=== PATIENT | female | born 1950 | race Caucasian/White ===

== ENCOUNTER 2025-04-02 09:13 | Outpatient (AMB) | payer MEDICARE, SELFPAY ==
--- OUTSIDE RECORDS SUMMARY | 2025-04-02 09:36 | XMS_ITS | Clinical Summary ---
Author Organization [facility] Address [address] [place] [address] Care Team Providers Care Bottom Saw Operator Name Role Phone Unavailable Primary Care Provider Unavailabl e Surgical History Surgery Date Site/Laterality Comments BLADDER SUSPENSION 1997 PROCEDURE: HISTORICAL BLADDER SUSPENSION; COMMENT: pubovesical cadaveric sling- Dr. Farfan/Nancy HYSTERECTOMY 1995 PROCEDURE: HISTORICAL HYSTERECTOMY; COMMENT: fibroids TAHBSO, polyps also, took ERT for 5 years post op BREAST LUMPECTOMY 08/15/2007 PROCEDURE: ---- BREAST LUMP BIOPSY ----; COMMENT: Dr. Thrasher-left BLADDER SUSPENSION 12/16/07 PROCEDURE: HISTORICAL BLADDER SUSPENSION; COMMENT: mid-urethral sling- Dr. Parker Keenan OTHER SURGICAL HISTORY 02/12/14 PROCEDURE: [place] NDSC NJX IMPLT MATRL URT&/BLDR NCK; COMMENT: Dr. Prieto - Macroplastique CATARACT EXTRACTION -2014 Left PROCEDURE: HISTORICAL CATARACT REMOVAL Medical History Medical History Date Comments Overactive bladder DX:Overactive bladder History of migraine headaches DX :History of migraine headaches Bilateral hand pain 11/05/2013 DX:Bilateral hand pain; COMMENT: Celebrex Sprain of ligament of lumbosacral joint 0 DX:Sprain of ligament of lumbosacral joint; COMMENT: IMO update Fatigue 09/27/2011 DX:Fatigue; COMM ENT: 09/07- defers sleep study Dermatophytosis of nail 02/20/2006 DX:[place] tophytosis of nail; COMMENT: Dr. Herrera, DPM Family History Medical History Relation Name Comments Arthritis Brother Alcohol/Drug Father Hypertension Father Arthritis Maternal Grandmother Arthritis Mother Hypertension Mother Arthritis Sister Relation Name Status Comments Brother Father Maternal Grandmother Mother Sister Social History Tobacco Use Types Packs/Day Years Used Date Smoking Tobacco: Never Smokeless Tobacco: Never Alcohol Use Standard Drinks/Week Comments No 0 (1 standard drink = 0.6 oz pur e alcohol) Comments Unknown Sex and Gender Information Value Date Recorded Sex Assigned at Not on file Legal Sex Female 9:56 AM EST Gender Identity Not on file Sexual Orientation Not on file Obstetrics History Plan of Treatment Health Maintenance Due Date Last Done Comments Zoster Vaccines (2 of 3) 05/24/2012 03/29/2012 Cholesterol Screening (Lipid Panel) 07/30/2022 Colorectal Cancer Screening: Colonoscopy 07/30/2022 Falls Risk Assessment 07/30/2022 Hepatitis C Screening 07/30/2022 Social Influencers of Health Screening 07/30/2022 Hypertension/CHF/CAD Annual BMP Blood Test 08/12/2022 COVID-19 Vaccine ( season) 2024 Depression Screening 08/27/2024 Influenza Vaccine (#1) 2025 8, 05/29/2016, 05/12/2015, Additional history exists RSV Immunization Adult Patients (1 - 1-dose 75+ series) 2025 Breast Cancer Screening 06/23/2026 06/23/20, 06/19/2023, 06/15/2022, Additional history exists DTaP,Tdap,and Td Vaccines (3 - Td or Tdap) 09/23/2028 09/23/2018, 05/21/2008 Osteoporosis Screening (Bone Density Screening) 06/15/2037 06/15/2022, 06/09/2020 Pneumococcal Vaccine: 50+ Years Completed 09/19/2016, 08/17/2015 HIB Vaccines Aged Out No longer eligi ble based on patient's age to complete this topic HPV Vaccines Aged Out No longer eligi ble based on patient's age to complete this topic Hepatitis A Vaccines Aged Out No long er eligible based on patient's age to complete this topic Hepatitis B Vaccines Aged Out No long er eligible based on patient's age to complete this topic IPV Vaccines Aged Out No longer eligi ble based on patient's age to complete this topic MMR Vaccines Aged Out No longer eligi ble based on patient's age to complete this topic Meningococcal ACWY Vaccine Aged Out N o longer eligible based on patient's age to complete this topic Meningococcal B Vaccine Aged Out No l onger eligible based on patient's age to complete this topic RSV Immunization Patients Under 20 months Aged Out No longer eligible based on patient's age to complete this topic Varicella Vaccines Aged Out No longer eligible based on patient's age to complete this topic Procedures Procedure Name Priority Date/Time Associated Diagnosis Comments [facility] SCREENING DIGITAL Routine 06/23/2024 12:47 PM EDT Encounter for screening mammogram for malignant neoplasm of breast [facility] DEXA AXIAL SKELETON Routine 06/15/2022 9:59 AM EDT Encounter for screening for osteoporosis from Last 3 Months or Most Recently Relevant to Health Maintenance Results * [facility] SCREENING DIGITAL (06/23/2024 12:47 PM EDT) Anatomical Region Laterality Modality Mammography 06/23/2024 9:10 AM EDT Narrative 06/23/2024 12:47 PM EDT [facility] Diagnostic Imaging Department [address] [place] [address] Patient: GERI DONIS Fay /Age/Sex: 1950 - 73 - F Unit#: [id number] Location/Status: [facility]REG CLI Mnemonic[facility] Physician: TYE COHEN MD [facility] Screening Digital - 06/23/24 - 0934 Report Status:Signed EXAM: [facility] Screening Digital EXAM DATE AND TIME: 06/23/2024 9:35 AM HISTORY: Screening. Left breast biopsy in 2006, pathology benign. COMPARISON: 06/19/23, 06/15/22, 06/13/21 TECHNIQUE: Bilateral digital breast tomosynthesis was performed in the CC and MLO projections. Computer aided detection with [employer] 3D 3.1 was employed. TISSUE DENSITY: b. There are scattered areas of fibroglandular density. FINDINGS: No suspicious masses, grouped microcalcifications, or areas of architectural distortion are seen. A small round skin lesion is again seen on the inferior left breast. The vascularity is unremarkable. IMPRESSION: Stable mammographic appearance of the breasts. No evidence of malignancy is seen. A negative mammogram in the presence of a clinically suspicious palpable abnormality does not preclude the possibility of malignancy or alter the indications for biopsy. BI-RADS: Category 1: Negative RECOMMENDATION(S): 1: Routine screening mammogram BILATERAL in 1 year. [facility] [address] [place] [address] Dictating Physician: FELICITY SHEPARD MD Electronically Signed by: FELICITY SHEPARD MD Dic Date/Time: 06/23/24 1247 Sign date/Time: 06/23/24 1247 Procedure Note Felicity Shepard MD - 06/28/2024 [facility] Diagnostic Imaging Department [address] [place] [address] Patient: RAYMUNDOGERI R /Age/Sex: 1950 - 73 - F Unit#: [id number] Location/Status: [facility] CLI Mnemonic/Ordering Site: [facility] Ordering Physician: TYE COHEN MD [facility] Screening Digital - 06/23/24 - 0934 Report Status:Signed EXAM: [facility] Screening Digital EXAM DATE AND TIME: 06/23/2024 9:35 AM HISTORY: Screening. Left breast biopsy in 2006, pathology benign. COMPARISON: 06/19/23, 06/15/22, 06/13/21 TECHNIQUE: Bilateral digital breast tomosynthesis was performed in the CCand MLO projections. Computer aided detection with [employer] 3D 3.1was employed. TISSUE DENSITY: b. There are scattered areas of fibroglandular density. FINDINGS: No suspicious masses, grouped microcalcifications, or areas ofarchitectural distortion are seen. A small round skin lesion is again seen on theinferior left breast. The vascularity is unremarkable. IMPRESSION: Stable mammographic appearance of the breasts. No evidence of malignancyis seen. A negative mammogram in the presence of a clinically suspicious palpable abnormality does not preclude the possibility of malignancy or alter the indications for biopsy. BI-RADS: Category 1: Negative RECOMMENDATION(S): 1: Routine screening mammogram BILATERAL in 1 year. Mammogram performed at [facility] [place] [address] Dictating Physician: FELICITY SHEPARD MD Electronically Signed by: FELICITY SHEPARD MD Dic Date/Time: 06/23/24 1247 Sign date/Time: 06/23/241246 Tye Cohen MD IMG BI PROCEDURES Final Result * [facility] DEXA AXIAL SKELETON (06/15/2022 9:59 AM EDT) Anatomical Region Laterality Modality Mammography 06/15/2022 8:58 AM EDT Narrative 06/15/2022 9:59 AM EDT [facility] Diagnostic Imaging Department [address] [place] [address] Patient: GERI DONIS /Age/Sex: 1950 - 71 - F Unit#: [id number] Location/Status: [facility]REG CLI Mnemonic/Ordering Site: [facility] Ordering Physician: RERE SIMMONS MD [facility] Dexa Axial Skeleton - 06/15/22 - HISTORY: The patient is a 71-year-old postmenopausal female with clinical concern for metabolic bone disease. FINDINGS: Dual energy x-ray absorptiometry of the lumbar spine and femurs is performed. The mean bone mineral density at L1-2 is 1.265 gm/cm2 which is 109% of that of young normals and 115% of that of age matched controls. This yields a T-score of 0.8 and a Z-score of 1.4 and there is therefore no evidence of osteoporosis or osteopenia here. The mean bone mineral density of the femurs bilaterally is 0.980 gm/cm2 which is 97% of that of young normals and 107% of that of age matched controls. This yields a T-score of -0.2 and a Z-score of 0.5 and there is therefore no evidence of osteoporosis or osteopenia here. However, the T-score of the right femoral neck is -1.4 and that of the left femoral neck is -1.5 which is diagnostic of osteopenia. IMPRESSION: 1. Osteopenia. There has been an increase of 4.5% in bone mineral density in the lumbar spine since the prior examination of 06/09/2020. There has been a decrease of 7.3% in bone mineral density in the right femur and a decrease of 3.2% in bone mineral density in the left femur. 2. FRAX analysis yields a 10-year probability of major osteoporotic fracture of 9.1% and a 10-year probability of hip fracture of 1.2%. Code 10325 Dictating Physician: MILDRED HASSAN MD Electronically Signed by: MILDRED HASSAN MD Dic Date/Time: 06/15/2258 Sign date/Time: 06/15/2259 Procedure Note Mildred Hassan MD - 2022 [facility] Diagnostic Imaging Department [address] [place] [address] Patient: GERI DONIS Fay Arriola./Age/Sex: 1950 - 71 - F Unit#: [id number] Location/Status: [facility]REG CLI Mnemonic[facility] Ordering Physician: RERE SIMMONS MD [facility] Dexa Axial Skeleton - 06/15/22 - HISTORY: The patient is a 71-year-old postmenopausal female withclinical concern for metabolic bone disease. FINDINGS: Dual energy x-ray absorptiometry of the lumbar spine and femursis performed. The mean bone mineral density at L1-2 is 1.265 gm/cm2 which is109% of that of young normals and 115% of that of age matched controls. Thisyields a T-score of 0.8 and a Z-score of 1.4 and there is therefore no evidenceof osteoporosis or osteopenia here. The mean bone mineral density of the femurs bilaterally is 0.980 gm/gk9hrniq is 97% of that of young normals and 107% of that of age matched controls.This yields a T-score of -0.2 and a Z-score of 0.5 and there is therefore noevidence of osteoporosis or osteopenia here. However, the T-score of the rightfemoral neck is -1.4 and that of the left femoral neck is -1.5 which is diagnosticof osteopenia. IMPRESSION: 1. Osteopenia. There has been an increase of 4.5% in bone mineral densityin the lumbar spine since the prior examination of 06/09/2020. There hasbeen a decrease of 7.3% in bone mineral density in the right femur and a decreaseof 3.2% in bone mineral density in the left femur. 2. FRAX analysis yields a 10-year probability of major osteoporoticfracture of 9.1% and a 10-year probability of hip fracture of 1.2%. Code 69804 Dictating Physician: MILDRED HASSAN MD Electronically Signed by: MILDRED HASSAN MD Dic Date/Time: 06/15/2258 Sign date/Time: 06/15/22958 us Rere Simmons MD IM BI PROCEDURES Final Resu lt from Last 3 Months or Most Recently Relevant to Health Maintenance Advance Directives Documents on File Type Date Recorded Patient Mental Health Professional Expl anation Health Care Decision (hx) 03/13/2022 AD COLES DIRECTIVE Health Care Decision (hx) 03/13/2022 AD COLES DIRECTIVE Health Care Decision (hx) 03/13/2022 AD COLES DIRECTIVE Health Care Decision (hx) 03/13/2022 AD COLES DIRECTIVE Health Care Decision (hx) 03/13/2022 AD COLES DIRECTIVE
--- OUTSIDE RECORDS SUMMARY | 2025-04-02 09:36 | XMS_ITS | Patient Health Record ---
Author Organization [facility] Address [address] [place] [address] Care Team Providers Care Electrical Manufacturing Engineer Name Role Phone Tye Cohen Primary Care Provider Spencer Grubbs Unavailable [phone] Allergies Allergen (clinical drug ingredient) Drug/Non Drug Allergy documented on EMR Reaction Allergy Type Onset Date Status ibuprofen Advil no allergy per pt, due to KD Drug Allergy Active Aleve no allergy per pt, due to KD Drug Allergy Active Motrin no allergy per pt, due to KD Drug Allergy Active Bee Sting Unknown Allergy Active cortisone Cortisone no allergy per pt Drug Allergy Active Reason For Referral No Information Medications Medication SIG (Take, Route, Frequency, Duration) Notes Start Date End Date Status Ciclopirox Olamine 0.77 % 1 application to affected area Externally to feet Twice a day; Duration: 30 days Not-Taking amLODIPine Besylate 5 MG 1 tablet Orally Once a day; Duration: 30 day(s) Active Rizatriptan Benzoate 5 MG 1 tablet Orally Once a day; Duration: 1 day(s) Not-Taking Allergy Eye Drops Ac tive Atorvastatin Calcium Not-Taking Tylenol PRN Active Systane eye drops PRN Active Antibiotic UTI Not-Takin g zzzCompression Stockings 20-30mm Hg . . .; Duration: . A ctive Eliquis Active Cephalexin 500 MG 1 capsule Orally every 12 hours; Duration: 10 day(s) 10 days 2days left 02/16/2022 Not-Taking Aspir-81 Active Sertraline HCl 25 MG Oral; Duration: 90 Not-Taking One-A-Day VitaCraves Adult - as directed Orally PRN Active Metoprolol Tartrate 25 MG as directed extended release once a day Active Immunizations Vaccine Route Administration Date Status Comme nts Influenza Unknown 06/13/2022 Administered COVID-19 Pfizer BioNTech Vaccine Unknown 05/24/2021 Administered 1st 11/03/20 2nd 11/24/20 Social History Tobacco Use: Social History Observation Description Date Details (start date - stop date) Never Smoker NA - NA Tobacco Use/Smoking Question Answer Notes Are you a: nonsmoker Additional Findings: Tobacco Non-User Current no n-smoker Alcohol Screen Question Answer Notes Did you have a drink containing alcohol in the p ast year? No Points 0 Interpretation Negative Tobacco use other than smoking: Question Answer Notes Are you an other tobacco user? No Problems Problem Type SNOMED Code ICD Code Onset Dates Problem Status W/U Status Risk Notes Problem Tinea unguium (174770603) Tinea unguium (B35.1) Active confirmed Problem Hammer toe of left foot (M20.42) Active confirmed Improvemen t, T2 Plan Of Treatment Pending Test Test Name Order Date [id number] NAIL, 6 OR MORE 04/01/2021 60920-APBFXHK NAIL, 6 OR MORE 06/17/2021 07014-MLGTUEK NAIL, 6 OR MORE 09/20/2021 77553-HJOOVJP NAIL, 6 OR MORE 11/25/2021 80592-SGROQFW NAIL, 6 OR MORE 02/10/2022 07324-RVLTAKY NAIL, 6 OR MORE 03/28/2022 25206-XBOGHNU NAIL, 6 OR MORE 06/20/2022 15808-AWPWNVA NAIL, 6 OR MORE 09/05/2022 31534-UAKIFXK NAIL, 6 OR MORE 12/05/2022 55004-TJOVRXZ NAIL, 6 OR MORE 09/18/2023 67742-Ggkfasra Plate 04/01/2021 26514-DYH 06/20/2021 23263-VZZ 02/10/2022 95494-GCS 12/05/2022 81134-IHJ 12/29/2022 68303-HKU 05/30/2022 17629- Debride <25 sq cm 01/12/2023 71061- Debride <25 sq cm 09/05/2022 10500- Debride <25 sq cm 03/28/2022 31677-ZYWSLQM SKIN/TISSUE 06/20/2022 62497-NYRIZWP SKIN/TISSUE 12/22/2022 40275-RAKVFPZ SKIN/TISSUE 02/24/2022 54207-VECYCSD SKIN/TISSUE 07/05/2021 74153-PXFVWWK SKIN/TISSUE 12/29/2022 65901-XIXAJWD SKIN/TISSUE 01/12/2023 70238 - Tenotomy, open flexor 12/04/2023 70692 - Tenotomy, open flexor 12/18/2023 Insurance Providers Payer Name Payer Address Payer Phone Subscriber Number Group Number Insured Name Patient Relationship to Insured Coverage Start Date Coverage End Date [facility] [address] [place] [address] [phone] [id number] Geri Donis Self - patient is the insured Medical (General) History Medical History History ICD Code rheumatoid arthritis Knee Pain Headaches/Migraines High blood pressure Measles Mumps Chicken pox blood clots following Covid vaccine Mild Heart attack Surgical History Surgery Date(Month/Year) Castro Implant 12/12/2016 Castro Implant (unsure what year) 06/15 bladder surgery 09/08/21 [place] knee and Lfoot Cortisone injection Hospitalization History Reason Date(Month/Year) Ultrasound L leg 11/22/21 [facility] Fall on 03/01/22 blood clots mild 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
--- NOTE | 2025-04-02 09:44 | MHC.OFFVIS ---
Intake Visit Reasons: urinary incontinence/nocturia Intake Note: New patient presents today for initial visit for urinary incontinence/nocturia Urology Medication:None Blood Thinner:Apixaban Antibiotic Allergies:None PVR:0ml Allergies bee pollen (bee stings) Allergy (Severe, Verified 04/02/25 09:45) Swelling environmental allergies Allergy (Mild, Verified 04/02/25 09:45) Rash HPI Comments Details: 04/02/25 History of Present Illness - The patient is a 74-year-old female presenting with urinary incontinence. - She has undergone two bladder surgeries, with the second surgery approximately five years ago due to complications with a sling procedure. - Post-surgery, she experienced strings protruding, which were addressed in-office by the surgeon. - She reports nocturnal urinary incontinence, requiring pad changes during the night due to significant leakage. - During the day, she experiences occasional urgency, particularly after consuming large beverages, but generally manages without incidents. - She has not been on any medication for urinary incontinence and has declined Botox treatment due to concerns about its safety. - She has a history of blood clot formation following COVID-19 vaccination, which led to hospitalization and treatment with heparin. - She denies any history of kidney problems, despite previous suggestions by another physician. - She reports the presence of sebaceous cysts in the genital area, which occasionally become noticeable and are self-managed. Results - Urinalysis: No signs of infection observed Plan - Initiate treatment with Trospium for bladder spasms, to be taken on an empty stomach. - Schedule an ultrasound of the kidneys and bladder to assess for any underlying issues. - Plan a follow-up phone call in one month to evaluate the effectiveness of the medication and adjust treatment as necessary. - Discussed the possibility of setting an alarm to wake up every three to four hours to manage nocturnal incontinence. [facility] Medical History (Updated 04/02/25 @ 13:30 by Monalisa Melchor MD) Urinary incontinence Severe obesity (BMI 35.0-39.9) with comorbidity Severe obesity Osteopenia Osteoarthritis of both shoulders Osteoarthritis of knees, bilateral Numerous skin moles Insomnia, unspecified Hypertension Hyperlipemia Generalized osteoarthritis Depression, major, in remission Classical migraine CKD (chronic kidney disease) stage 3, GFR 30-59 ml/min Atrial fibrillation Surgical History H/O: hysterectomy Review of Systems Const All systems reviewed & are unremarkable except as noted in HPI and below Reports no additional complaints Eyes Reports no additional complaints ENT Reports no additional complaints Card Reports no additional complaints Resp Reports no additional complaints GI Reports no additional complaints Reports as per HPI Musc Reports no additional complaints Skin/Breast Reports system reviewed and no additional complaints, except as documented Neuro Reports no additional complaints Psych Reports no additional complaints Endo Reports no additional complaints Seymour/Lymph Reports no additional complaints Aller/Immun Reports no additional complaints Results AMB Urinalysis, Automated UA Leukoctes 0 Usman/uL Last Edit by Radha Lazo on 04/02/25 15:21 UA Nitrite Negative Last Edit by Radha Lazo on 04/02/25 15:21 UA Urobilinogen 3.5 mg/dL Last Edit by Radha Lazo on 04/02/25 15:21 UA Protein 1 mg/dL Last Edit by Radha Lazo on 04/02/25 15:21 UA pH 5.0 Last Edit by Radha Lazo on 04/02/25 15:21 UA Blood 0 Eric/uL Last Edit by Radha Lazo on 04/02/25 15:21 UA Specific Bimble 1.025 Last Edit by Radha Lazo on 04/02/25 15:21 UA Ketone Negative Last Edit by Radha Lazo on 04/02/25 15:21 UA Bilirubin 0 mg/dL Last Edit by Radha Lazo on 04/02/25 15:21 UA Glucose 0 mg/dL Last Edit by Radha Lazo on 04/02/25 15:21 Assessment & Plan Assessment & Plan (1) Nocturia: Code(s): R35.1 - Nocturia Category: Medical (2) Urinary incontinence: Code(s): R32 - Unspecified urinary incontinence Category: Medical Orders: Orders AMB Urinalysis Automated Today R32 - Unspecified urinary incontinence, R35.1 - Nocturia AMB Post Void Residual by ultrasound Today R32 - Unspecified urinary incontinence, R35.1 - Nocturia Medications: New apixaban 5 mg PO BID 60 tabs 0RF docusate sodium 100 mg PO BID 60 tabs 0RF acetaminophen 650 mg (2 x 325 mg) PO Q6H PRN 60 tabs 0RF pain amlodipine 5 mg PO DAILY 60 tabs 0RF metoprolol succinate ER 25 mg PO DAILY 60 tabs 0RF trazodone 100 mg PO BEDTIME 60 tabs 0RF Coding Diagnoses Nocturia R35.1 Urinary incontinence R32
== END 2025-04-02 10:36 | disposition home or self-care (01) ==
LOC: HO.HUSH 09:14
PROVIDERS: PCP Internal Medicine; Visit Provider Urology
DX: R35.1 Nocturia (principal); R32 Unspecified urinary incontinence

== ENCOUNTER → 2025-04-02 09:13 | Outpatient (BNVA) | payer MEDICARE, SELFPAY | PROVIDERS: PCP Internal Medicine; Visit Provider Urology | DX: R35.1 Nocturia (principal); R32 Unspecified urinary incontinence | CPT/HCPCS: 81003; 99202 ==

== ENCOUNTER 2025-04-24 10:41 | Outpatient (AMB) | payer MEDICARE, SELFPAY ==
--- OUTSIDE RECORDS SUMMARY | 2024-02-01 08:15 | XMS_ITS ---
Author Organization [facility] Address [address] [place] [address] Care Team Providers Care Store Mgr Name Role Phone Tye Cohen Primary Care Provider Unavailabl Spencer Nguyễn Unavailable [phone] Encounters Encounter Location Date Provider Diagnosis [address] [address] 02/01/2024 Spencer Ordoñez Plan Of Treatment No Information Progress Notes * Luzma DONISineDOB:[birth year] (74 yo F)Acc No.[id number]:02/01/2024 Progress Notes Patient: Geri RAMSO Provider: Jose Ordoñez DPM :1950 A ge:73 Y S ex:Female Date:02/01/2024 Address:[address] [place], [place] [phone] Pcp:Tye Cohen Subjective: * Chief Complaints: * * Medical History: Objective: * Vitals: Assessment: Plan: * Treatment: * Images: * The named appointment provid er may or may not be the originator of this progress note, and it is not deemed complete until electronically signed by the appointment provider. Sign off status: Pending * Provider: Jose Ordoñez DPM Date: 02/01/2024 Generated for Lucilai ng/Famaryg/eTransmitting on: 0 04/24/2025 11:19 AM EDT
--- NOTE | 2025-04-24 10:42 | MHC.OFFVIS ---
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 She has mixed picture. The patient states that trospium did not help, made symptoms worse. She is interested in the bulkamid procedure. Further evaluation is scheduled for office cystoscopy and pelvic exam at that time. Renal US pending. 04/02/25 History of Present Illness - The patient is a 74-year-old female presenting with urinary incontinence. - She has undergone two bladder surgeries, with the second surgery approximately five years ago due to complications with a sling procedure. - Post-surgery, she experienced strings protruding, which were addressed in-office by the surgeon. - She reports nocturnal urinary incontinence, requiring pad changes during the night due to significant leakage. - During the day, she experiences occasional urgency, particularly after consuming large beverages, but generally manages without incidents. - She has not been on any medication for urinary incontinence and has declined Botox treatment due to concerns about its safety. - She has a history of blood clot formation following COVID-19 vaccination, which led to hospitalization and treatment with heparin. - She denies any history of kidney problems, despite previous suggestions by another physician. - She reports the presence of sebaceous cysts in the genital area, which occasionally become noticeable and are self-managed. Results - Urinalysis: No signs of infection observed Plan - Initiate treatment with Trospium for bladder spasms, to be taken on an empty stomach. - Schedule an ultrasound of the kidneys and bladder to assess for any underlying issues. [facility] Medical History (Updated 04/02/25 @ 13:30 by Monalisa Melchor MD) Urinary incontinence Severe obesity (BMI 35.0-39.9) with comorbidity Severe obesity Osteopenia Osteoarthritis of both shoulders Osteoarthritis of knees, bilateral Numerous skin moles Insomnia, unspecified Hypertension Hyperlipemia Generalized osteoarthritis Depression, major, in remission Classical migraine CKD (chronic kidney disease) stage 3, GFR 30-59 ml/min Atrial fibrillation Surgical History H/O: hysterectomy Review of Systems Const All systems reviewed & are unremarkable except as noted in HPI and below Reports no additional complaints Eyes Reports no additional complaints ENT Reports no additional complaints Card Reports no additional complaints Resp Reports no additional complaints GI Reports no additional complaints Reports as per HPI Musc Reports no additional complaints Skin/Breast Reports system reviewed and no additional complaints, except as documented Neuro Reports no additional complaints Psych Reports no additional complaints Endo Reports no additional complaints Seymour/Lymph Reports no additional complaints Aller/Immun Reports no additional complaints Telehealth Telehealth Telehealth Platform: Telephone Location of provider rendering services: practice address Location of patient: address on file Patient Identification confirmed using: Name, : Yes Telehealth method: voice only Patient verbally consented to treatment: Yes Patient verbally consented to billing insurance company: Yes Patient informed of any privacy concerns related to visit: Yes Minutes spent on Phone/Video with Pt.: 13 Assessment & Plan Assessment & Plan (1) Nocturia: Code(s): R35.1 - Nocturia Category: Medical (2) Urinary incontinence: Code(s): R32 - Unspecified urinary incontinence Category: Medical Plan FU cystoscopy and pelvic exam. Renal US pending. Patient Instructions: The patient had an opportunity to ask questions regarding treatment plan. The patient expressed understanding and agreement with the above treatment plan. The patient is aware they should contact our office by phone for worsening of their current condition or the appearance of new symptoms. Compliance is encouraged with any medications and followup testing that is ordered. It is a privilege to be allowed the opportunity to participate in the urologic care of your patient. If you have any questions or concerns regarding treatment for the above conditions please do not hesitate to contact me. The office telephone contact is [phone]. This note is constructed in part using voice recognition software. While every effort has been made to ensure accuracy supervisor hot dip plating errors may have been included. Yours sincerely, Monalisa Melchor MD Coding Level of Care Code Tele Est Pt Level 3 (83406) Diagnoses Nocturia R35.1 Urinary incontinence R32
--- OUTSIDE RECORDS SUMMARY | 2025-04-24 11:20 | XMS_ITS | Patient Health Record ---
Author Organization [facility] Address [address] [place] [address] Care Team Providers Care [employer] Caretaker Name Role Phone Tye Cohen Primary Care Provider Spencer Grubbs Unavailable [phone] Allergies Allergen (clinical drug ingredient) Drug/Non Drug [...] W/U Status Risk Notes Problem Tinea unguium (840200838) Tinea unguium (B35.1) Active confirmed Problem Hammer toe of left foot (M20.42) Active confirmed Improvemen t, T2 Plan Of Treatment Pending Test Test Name Order Date [id number]-APGSHWK NAIL, 6 OR MORE 04/01/2021 36621-LCUPGMF NAIL, 6 OR MORE 06/17/2021 32714-PWBKYQD NAIL, 6 OR MORE 09/20/2021 94941-TGNPIMD NAIL, 6 OR MORE 11/25/2021 72753-SRRPZRC NAIL, 6 OR MORE 02/10/2022 36833-RYPMTNQ NAIL, 6 OR MORE 03/28/2022 48274-CWOPSES NAIL, 6 OR MORE 06/20/2022 04721-TVBUHHZ NAIL, 6 OR MORE 09/05/2022 94963-YQDMPMB NAIL, 6 OR MORE 12/05/2022 34989-DUXSWUV NAIL, 6 OR MORE 09/18/2023 32346-Ytnalnci Plate 04/01/2021 14970-JFY 06/20/2021 83394-JLL 02/10/2022 60835-OWG 12/05/2022 34928-FIC 12/29/2022 64967-XJO 05/30/2022 92665- Debride <25 sq cm 01/12/2023 50987- Debride <25 sq cm 09/05/2022 51991- Debride <25 sq cm 03/28/2022 33581-KDRVKLS SKIN/TISSUE 06/20/2022 82194-CRNYFTJ SKIN/TISSUE 12/22/2022 91413-UTUJXSB SKIN/TISSUE 02/24/2022 31719-YCOAVYT SKIN/TISSUE 07/05/2021 02769-RROMQVS SKIN/TISSUE 12/29/2022 58996-HHLTAQK SKIN/TISSUE 01/12/2023 16655 - Tenotomy, open flexor 12/04/2023 65772 - Tenotomy, open flexor 12/18/2023 Insurance Providers Payer Name Payer Address Payer Phone Subscriber Number Group Number Insured Name Patient Relationship to Insured Coverage Start Date Coverage End Date [facility] [address] [place] [address] [phone] [id number] Geri Donis Self - patient is [...] History Reason Date(Month/Year) Ultrasound L leg 11/22/21 [facility] Fall on 03/01/22 blood clots mild 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
--- OUTSIDE RECORDS SUMMARY | 2025-04-24 11:20 | XMS_ITS | Clinical Summary ---
Author Organization [employer] [facility] Address [address] [place] [address] Care Team Providers Care Damage Appraiser Name Role Phone Unavailable Primary Care Provider [...] defers sleep study Dermatophytosis of nail 02/20/2006 DX:[place] tophytosis of nail; COMMENT: Dr. Herrera, DPM [...] Procedure Name Priority Date/Time Associated Diagnosis Comments [facility] SCREENING DIGITAL Routine 06/23/2024 12:47 PM EDT Encounter for screening mammogram for malignant neoplasm of breast [facility] DEXA AXIAL SKELETON Routine 06/15/2022 9:59 AM EDT Encounter for screening for osteoporosis from Last 3 Months or Most Recently Relevant to Health Maintenance Results * [facility] SCREENING DIGITAL (06/23/2024 12:47 PM EDT) Anatomical Region Laterality Modality Mammography 06/23/2024 9:10 AM EDT Narrative 06/23/2024 12:47 PM EDT [facility] Diagnostic Imaging Department [address] [place] [address] Patient: GERI DONIS Fay /Age/Sex: 1950 - 73 - F Unit#: [id number] Location/Status: [facility]/REG CLI Mnemonic/Ordering Site[facility] Ordering Physician: TYE COHEN MD [facility] Screening Digital - 06/23/24 - 0934 Report Status:Signed EXAM: [facility] Screening Digital EXAM DATE AND TIME: 06/23/2024 9:35 AM HISTORY: Screening. Left breast biopsy in 2006, pathology benign. COMPARISON: 06/19/23, 06/15/22, 06/13/21 TECHNIQUE: Bilateral digital breast tomosynthesis was performed in the CC and MLO projections. Computer aided detection with [employer] 3D 3.1 was employed. TISSUE DENSITY: b. [...] Mammogram performed at [facility] [address] [place] [address] Dictating Physician: FELICITY SHEPARD MD Electronically Signed by: FELICITY SHEPARD MD Dic Date/Time: 06/23/24 1247 Sign date/Time: 06/23/24 1247 Procedure Note Felicity Shepard MD - 06/28/2024 [facility] Diagnostic Imaging Department [address] [place] [address] Patient: RAYMUNDOGEIR R /Age/Sex: 1950 - 73 - F Unit#: [id number] Location/Status: [facility] CLI Mnemonic/Ordering Site: [facility] Ordering Physician: TYE COHEN MD [facility] Screening Digital - 06/23/24 - 0934 Report Status:Signed EXAM: [facility] Screening Digital EXAM DATE AND TIME: 06/23/2024 9:35 AM HISTORY: Screening. Left breast biopsy in 2006, pathology benign. COMPARISON: 06/19/23, 06/15/22, 06/13/21 TECHNIQUE: Bilateral digital breast tomosynthesis was performed in the CCand MLO projections. Computer aided detection with [employer] 3D 3.1was employed. TISSUE DENSITY: b. There [...] Mammogram performed at [facility] [place] [address] Dictating Physician: FELICITY SHEPARD MD Electronically Signed by: FELICITY SHEPARD MD Dic Date/Time: 06/23/24 1247 Sign date/Time: 06/23/241246 Tye Cohen MD IMG BI PROCEDURES Final Result * [facility] DEXA AXIAL SKELETON (06/15/2022 9:59 AM EDT) Anatomical Region Laterality Modality Mammography 06/15/2022 8:58 AM EDT Narrative 06/15/2022 9:59 AM EDT [facility] Diagnostic Imaging Department [address] [place] [address] Patient: GERI DONIS /Age/Sex: 1950 - 71 - F Unit#: [id number] Location/Status: [facility]REG CLI Mnemonic/Ordering Site: [facility] Ordering [...] probability of hip fracture of 1.2%. Code 92483 Dictating Physician: MILDRED HASSAN MD Electronically Signed by: MILDRED HASSAN MD Dic Date/Time: 06/15/2258 Sign date/Time: 06/15/2259 Procedure Note Mildred Hassan MD - 2022 [facility] Diagnostic Imaging Department [address] [place] [address] Patient: GERI DONIS Fay Arriola./Age/Sex: 1950 - 71 - F Unit#: [id number] Location/Status: [facility]/REG CLI [facility] Ordering Physician: RERE SIMMONS MD [facility] Dexa Axial Skeleton - 06/15/22 [...] density of the femurs bilaterally is 0.980 gm/es8bzull is 97% of that of young normals [...] probability of hip fracture of 1.2%. 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
== END 2025-04-24 16:36 | disposition home or self-care (01) ==
LOC: HO.HUSH 10:41
PROVIDERS: PCP Internal Medicine; Visit Provider Urology
DX: R35.1 Nocturia (principal); R32 Unspecified urinary incontinence
CPT/HCPCS: 99213

== ENCOUNTER 2025-05-19 10:19 | Outpatient (REF) | payer MEDICARE, SELFPAY ==
--- OUTSIDE RECORDS SUMMARY | 2024-02-01 08:15 | XMS_ITS ---
Author Organization [facility] Address [address] [place] [address] Care Team Providers Care Supervisor Nutritional Yeast Name Role Phone Tye Cohen Primary Care Provider Unavailabl Spencer Nguyễn Unavailable [phone] Encounters Encounter Location Date Provider Diagnosis [address] [address] 02/01/2024 Spencer Ordoñez Plan Of Treatment No Information Progress Notes * Luzma DONISineDOB:[birth year] (74 yo F)Acc No.[id number]:02/01/2024 Progress Notes Patient: Geri RAMOS Provider: Jose Ordoñez DPM :1950 A ge:73 Y S ex:Female Date:02/01/2024 Address:[address] [place], [place] [id number] Pcp:Tye Cohen Subjective: * Chief Complaints: * * Medical History: Objective: * Vitals: Assessment: Plan: * Treatment: * Images: * The named appointment provid er may or may not be the originator of this progress note, and it is not deemed complete until electronically signed by the appointment provider. Sign off status: Pending * Provider: Jose Ordoñez DPM Date: 02/01/2024 Generated for Lucilai ng/Faxing/eTransmitting on: 0 05/19/2025 12:32 PM EDT
--- NOTE | ~2025-05-19 | US_ITS ---
CLINICAL HISTORY: R32 - Unspecified urinary incontinence US Renal Comparison: None provided Findings: Right kidney normal size and mildly increased in echotexture, 11.1 cm length. Left kidney normal size and mildly increased in echotexture, 10.3 cm length. No collecting system dilatation of either kidney. Normal color Doppler. IMPRESSION: Mildly increased renal cortical echotexture as can be seen with mild medical renal disease. Clinical correlation. No hydronephrosis. This document has been electronically signed by: Felice Matamoros MD on 05/20/2025 08:56:17
--- OUTSIDE RECORDS SUMMARY | 2025-05-19 12:32 | XMS_ITS | Patient Health Record ---
Author [facility] Address [address] [place] [address] Care Team Providers Care Stitching Machine Feeder Or Offbearer Name Role Phone Tye Cohen Primary Care Provider Spencer Grubbs Unavailable [phone] Allergies Allergen (clinical drug ingredient) Drug/Non Drug [...] W/U Status Risk Notes Problem Tinea unguium (042508472) Tinea unguium (B35.1) Active confirmed Problem Acquired hammer toe of left foot (402356221914 9103) Hammer toe of left foot (M20.42) Active confirmed Improvemen t, T2 Plan Of Treatment Pending Test Test Name Order Date [id number]-LNZQURQ NAIL, 6 OR MORE 04/01/2021 69515-IEBIFNY NAIL, 6 OR MORE 06/17/2021 80565-PNLUZQQ NAIL, 6 OR MORE 09/20/2021 85785-LRFHWAS NAIL, 6 OR MORE 11/25/2021 80238-ODFZPMS NAIL, 6 OR MORE 02/10/2022 82332-LZIUTGQ NAIL, 6 OR MORE 03/28/2022 21724-UFHBTRT NAIL, 6 OR MORE 06/20/2022 47438-RWYWINC NAIL, 6 OR MORE 09/05/2022 82206-FCSIGNV NAIL, 6 OR MORE 12/05/2022 20777-BAUYXRO NAIL, 6 OR MORE 09/18/2023 49757-Jkujdvfz Plate 04/01/2021 46396-OBD 06/20/2021 28295-ERM 02/10/2022 77014-WAK 12/05/2022 57377-EHY 12/29/2022 16368-HVH 05/30/2022 85372- Debride <25 sq cm 01/12/2023 37298- Debride <25 sq cm 09/05/2022 60128- Debride <25 sq cm 03/28/2022 85340-DVLVLDE SKIN/TISSUE 06/20/2022 24926-POATRBH SKIN/TISSUE 12/22/2022 98547-HNGWTEF SKIN/TISSUE 02/24/2022 15299-EIYMGDD SKIN/TISSUE 07/05/2021 05103-OOKTDCN SKIN/TISSUE 12/29/2022 23040-VOKYFLG SKIN/TISSUE 01/12/2023 07668 - Tenotomy, open flexor 12/04/2023 66460 - Tenotomy, open flexor 12/18/2023 Insurance Providers Payer Name Payer Address Payer Phone Subscriber Number Group Number Insured Name Patient Relationship to Insured Coverage Start Date Coverage End Date [facility] [address] [place] [address] [phone] [id number] Jewels Geri Self - patient is the insured Medical [...] History Reason Date(Month/Year) Ultrasound L leg 11/22/21 [facility] Fall on 03/01/22 blood clots mild 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
--- OUTSIDE RECORDS SUMMARY | 2025-05-19 12:32 | XMS_ITS | Clinical Summary ---
Author Organization [facility] Address [address] [place] [address] Care Team Providers Care Real Estate Coordinator Name Role Phone Unavailable Primary Care Provider [...] Parker Keenan OTHER SURGICAL HISTORY 02/12/14 PROCEDURE: [place] NDSC NJX IMPLT MATRL URT&/BLDR NCK; COMMENT: [...] defers sleep study Dermatophytosis of nail 02/20/2006 DX:[place] tophytosis of nail; COMMENT: Dr. Herrera, DPM [...] Due Date Last Done Comments Zoster Vaccines (3 of 3) 08/23/2020 020, 04/14/2020, 03/29/2012, Additional history exists Cholesterol Screening (Lipid Panel) 07/30/2022 Falls Risk Assessment 07/30/2022 Hepatitis C Screening 07/30/2022 Social Influencers of Health Screening 07/30/2022 Hypertension/CHF/CAD Annual BMP Blood Test 08/12/2022 Depression Screening 08/27/2024 COVID-19 Vaccine ( season) 2025 12/08/2021, 05/24/2021, 11/24/2020, Additional history exists Influenza Vaccine (#1) 2025 , 06/15/2022, 06/13/2021, Additional history exists RSV Immunization Adult Patients (1 - 1-dose 75+ series) 2025 Breast Cancer Screening 06/23/2026 06/23/20 24, 06/19/2023, 06/15/2022, Additional history exists Colorectal Cancer Screening: FIT-DNA (Cologuard) 05/08/2027 05/08/2024, 05/08/2024 DTaP,Tdap,and Td Vaccines (5 - Td or Tdap) 09/23/2028 09/23/2018, 08/27/2011, 05/21/2008, Additional history exists Osteoporosis Screening (Bone Density Screening) 06/15/2037 06/15/2022, 06/09/2020 Pneumococcal Vaccine: 50+ Years Completed 12/31/2023, 05/10/2023, 06/09/2019, Additional history exists HIB Vaccines Aged Out No longer eligi [...] Procedure Name Priority Date/Time Associated Diagnosis Comments [facility] SCREENING DIGITAL Routine 06/23/2024 12:47 PM EDT Encounter for screening mammogram for malignant neoplasm of breast [facility] DEXA AXIAL SKELETON Routine 06/15/2022 9:59 AM EDT Encounter for screening for osteoporosis from Last 3 Months or Most Recently Relevant to Health Maintenance Results * [facility] SCREENING DIGITAL (06/23/2024 12:47 PM EDT) Anatomical Region Laterality Modality Mammography 06/23/2024 9:10 AM EDT Narrative 06/23/2024 12:47 PM EDT [facility] Diagnostic Imaging Department [address] [place] [id number] Patient: GERI DONIS Fay Deras/Age/Sex: 1950 - 73 - F Unit#: [id number] Location/Status: SPDIMAM/REG CLI Mnemonic/Ordering Site: DIGSC/SPMAM Ordering Physician: MARY COHEN MD [facility] Screening Digital - 06/23/24 - 933 Report Status:Signed EXAM: [facility] Screening Digital EXAM DATE AND TIME: 06/23/2024 9:35 AM HISTORY: Screening. Left breast biopsy in 2006, pathology benign. COMPARISON: 06/19/23, 06/15/22, 06/13/21 TECHNIQUE: Bilateral digital breast tomosynthesis was performed in the CC and MLO projections. Computer aided detection with Expert360 3D 3.1 was employed. TISSUE DENSITY: b. [...] [facility]amm[facility] performed at [facility] [address] [place] [address] Dictating Physician: FELICITY SHEPARD MD Electronically Signed by: FELICITY SHEPARD MD Dic Date/Time: 06/23/24 1247 Sign date/Time: 06/23/24 1247 Procedure Note Felicity Shepard MD - 06/28/2024 [facility] Diagnostic Imaging Department [address] [place] [address] Patient: GERI DONIS.O.B./Age/Sex: 1950 - 73 - F Unit#: [id number] Location/Status: SPDIMAM/REG CLI Mnemonic/Ordering Site: [facility] Ordering Physician: MARY COHEN MD [facility] Screening Digital - 06/23/24 - 34 Report Status:Signed EXAM: [facility] Screening Digital EXAM DATE AND TIME: 06/23/2024 9:35 AM HISTORY: Screening. Left breast biopsy in 2006, pathology benign. COMPARISON: 06/19/23, 06/15/22, 06/13/21 TECHNIQUE: Bilateral digital breast tomosynthesis was performed in the CCand MLO projections. Computer aided detection with Expert360 3D 3.1was employed. TISSUE DENSITY: b. There [...] Mammogram performed at [place] [address] Dictating Physician: FELICITY SHEPARD MD Electronically Signed by: FELICITY SHEPARD MD Dic Date/Time: 06/23/241246 Sign date/Time: 06/23/241246 Mary Cohen MD IMG BI PROCEDURES Final Result * [facility] DEXA AXIAL SKELETON (06/15/2022 9:59 AM EDT) Anatomical Region Laterality Modality Mammography 06/15/2022 8:58 AM EDT Narrative 06/15/2022 9:59 AM EDT [facility] Diagnostic Imaging Department [address] [place] [id number] Patient: GERI DONIS Fay /Age/Sex: 1950 - 71 - F Unit#: [id number] Location/Status: SPDIMA/REG CLI Mnemonic[facility] Ordering Physician: RERE SIMMONS MD [facility] Dexa [...] probability of hip fracture of 1.2%. Code 68501 Dictating Physician: MILDRED HASSAN MD Electronically Signed by: MILDRED HASSAN MD Dic Date/Time: 06/15/22957 Sign date/Time: 06/15/22958 Procedure Note Mildred Hassan MD - 2022 [facility] Diagnostic Imaging Department [address] [place] [address] Patient: GERI DONIS Fay GuerreroB./Age/Sex: 1950 - 71 - F Unit#: [id number] Location/Status: [facility] Mnemonic[facility] Ordering Physician: RERE SIMMONS MD [facility] Dexa [...] density of the femurs bilaterally is 0.980 gm/ii1whtbo is 97% of that of young normals [...] probability of hip fracture of 1.2%. 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
== END 2025-05-19 10:20 | disposition home or self-care (01) ==
LOC: HO.HMGCX 10:19
PROVIDERS: PCP Internal Medicine; Visit Provider Urology
DX: R32 Unspecified urinary incontinence (principal); R35.1 Nocturia
CPT/HCPCS: 76775

== ENCOUNTER → 2025-05-19 10:37 | Outpatient (BNV) | payer MEDICARE, SELFPAY | PROVIDERS: PCP Internal Medicine; Visit Provider Radiology Vascular & Interventional Radiology | DX: R32 Unspecified urinary incontinence (principal) | CPT/HCPCS: 76775 ==

== ENCOUNTER 2025-05-27 10:42 | Outpatient (REF) | payer MEDICARE, SELFPAY ==
--- OUTSIDE RECORDS SUMMARY | 2024-02-01 08:15 | XMS_ITS ---
Author Organization [facility] Address [address] [place] [address] Care Team Providers Care Gas Booster Engineer Name Role Phone Tye Cohen Primary Care Provider Unavailabl Spencer Nguyễn Unavailable [phone] Encounters Encounter Location Date Provider Diagnosis [address] [address] 02/01/2024 Spencer Ordoñez Plan Of Treatment No Information Progress Notes * Pau DONISOB:[birth year] (74 yo F)Acc No.[id number]:02/01/2024 Progress Notes Patient: Geri RAMOS Provider: Jose Ordoñez DPM :1950 A ge:73 Y S ex:Female Date:02/01/2024 Address:[address] [place], [place] [phone] Pcp:Tye Cohen Subjective: * Chief Complaints: * [...] 02/01/2024 Generated for Lucilai ng/Famaryg/eTransmitting on: 1 12:15 PM EDT
--- NOTE | ~2025-05-27 | US_ITS ---
CLINICAL HISTORY: Nocturia Exam: Bladder ultrasound Comparison: US - US RENAL BI - 05/19/25 10:39 EDT Findings: Unremarkable urinary bladder, no calculus or mass, no apparent bladder wall thickening, prevoid bladder volume 131 mL, postvoid residual volume 54 mL, right ureteral jet is seen, left ureteral jet is not visualized. Impression: Prominent postvoid bladder residual volume, otherwise normal. This document has been electronically signed by: Vicky Enrique MD on 05/27/2025 14:25:08
--- OUTSIDE RECORDS SUMMARY | 2025-05-27 12:16 | XMS_ITS | Data Portability ---
Author Organization [place] - [facility],, RERE SIMMONS MD Address [address] [facility] [address] [place] [address] Care Team Providers Care Fitness Assistant Name Role Phone CLAUDE ZUNIGAYUE Primary Care Provider Assessment No assessment recorded. Plan of Treatment Reminders Order Date Submit Date Provider Last Modified By Organization Details Last Modified Time Details Appointments None recorded. Lab cytology report, thin prep, smear or scraping, cervical or vaginal 2024 025 NORA [facility] (Centralized Electronic Ordering - All Locations), Patient Can Go To The Location Of Their Choice, [id number] 5 09:28:15 culture, urine 2022 023 [facility] (Centralized Electronic Ordering - All Locations), Patient Can Go To The Location Of Their Choice, [id number] 3 09:38:09 pap test, thinprep, cervical 2022 023 [facility] (Centralized Electronic Ordering - All Locations), Patient Can Go To The Location Of Their Choice, [id number] 3 07:47:51 pap test, thinprep, cervical 2021 022 [email or web address] [facility], Cytopathology Service, [address] [facility], [place], [address], 2 07:43:52 Referral None recorded. Procedures None recorded. Surgeries None recorded. Imaging MAMMO, screening , digital, bilateral - Breast Aspiratio n and/or Biopsy if needed 2024 025 nick [facility]iology, [address] [facility], [address], [place], [address], 5 14:51:11 bone density 2024 025 [facility] Radiology, [address], [address], [place], [address], 5 14:51:11 MAMMO, screening , digital, bilateral - Breast Aspiratio n and/or Biopsy if needed 2022 023 [facility] Radiology, [address], [address], [place], [address], 5 07:18:26 bone density 2022 023 [facility] Radiology, [address], [address], [place], [address], 5 07:32:11 MAMMO, screening , digital, bilateral 2021 022 [facility] (Mammography), [address], [place], [address], 2 14:14:36 bone density 2021 022 [facility] Radiology, [address], [address], [place], [address], 10:08:37 Medication Orders estradiol 0.01% (0.1 mg/gram) vaginal cream 2024 025 [facility]/Pharmacy #[id number], [address] [place], [address], 5 09:42:56 estradiol 0.01% (0.1 mg/gram) vaginal cream 2021 022 [facility]/Pharmacy #[id number], [address] [place], [address], 3 09:55:53 Patient TargetsNo targets recorded. Patient Instructions Encounter Date Encounter Id Patient Instructions Last Modified By Organization Details Last Modified Time 06/14/2020 [id number] osteoporosis education Not available 06/14/2020 09:23:04 calcium requirem ent education Not available 06/14/2020 09:23:04 This visit is a phone telehealth visit. The patient consented to the visit by phone. The patient was at home at the time of the call and the provider and patient were the only people on the line. I was at [address] [facility], [address], [place], [place], at the time of the call. She had a normal bone density in 2016. Her recent bone density showed a significant loss however, from 6 to 9% in all parameters. She does not really eat much dairy, she does take an MVI in the morning, but little else for calcium during the day, other than her 2 glasses of milk. milk. We discussed her new diagnosis of osteopenia. We reviewed the results of her bone density test, with reference to the computer images. We discussed the way that standard deviation is used for diagnosis, and what this means to her as she ages. Adequate calcium intake of 1500 mg daily, weight bearing exercise three times a week, and vitamin D supplementation of at least 400 units daily is suggested. She is advised to avoid tobacco, coffee, and steroids if possible. Benefits of an active lifestyle discussed as well. All questions answered. We discussed the different forms of medical treatment for osteoporosis, in case she might need this in the future. She is going to add in an afternoon Viactiv, and add yogurt at lunch time. She will also add in 2000 units of vitamin d a day. She will repeat the bone density testing in 2 years to assess her progress.She is aware that if her bone density diminished significantly in the intervening 2 years she may need medical therapy at that time. She is encouraged to try this preventive therapy first. Return for routine annual exam as scheduled. Face to face discussion for 30 minutes. Not available 06/14/2020 09:24:05 05/05/2022 [id number] atrophic vaginit is: care instructions Not available 05/05/2022 09:40:54 atrial fibrillation: care instructions Not available 05/05/2022 09:40:54 atrophic vaginit is: care instructions Not available 05/05/2022 09:39:47 learning about healthy weight Not available 05/05/2022 09:39:47 She is here for annual exam, had bladder tuck with Dr. Jania Brown in 09/17, but has not noted any improvement in her incontinence or her nocturia every hour, with incontinence on the way to the bathroom. She is not on vaginal estrogen. 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 No surgery is planned. 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 Her grandson Micah is 10, and lockdown has been difficult, He tore his mother's place apart, he is autistic nad nearly nonverbal. She is using the NyStop powder with good results, does not need a refill at this time. She appears to be doing well. She is advised to get 1500 mg of calcium daily into her diet and supplements combined. We discussed the benefits of adequate vitamin D supplementation to at least 400 units daily, daily aerobic exercise of 30 minutes, and stress reduction. Monthly self breast exam was taught, and stressed, and is advised to call if she discovers any new mass in the breast. We discussed adding in vaginal estrogen to see if this helps her symptoms. She is aware to use a scant amount only, as estrogen can increase blood clot risks, but in small doses this will not elevate her serum estradiol levels. She understands and agrees. Rx 0.25 mg estradiol cream daily. Not available 05/05/2022 09:39:45 06/19/2022 [id number] The patient was agreeable to this plan. She is aware of the limitations caused by the covid restrictions, and this phone call, but was appreciative of the efforts to complete the evaluation. She has a recent bone density that showed worsening osteopenia, she lost 4% to 7% bone density in the two femurs. She does not take a calcium or vitamin d supplement. She tried Viactiv but it made her constipated. Her orange juice does have some calcium added, and we reviewed her diet in great detail to find where she might improve her intakes of calcium. We discussed her diagnosis of osteopenia. We reviewed the results of her bone density test, with reference to the computer images. We discussed the way that standard deviation is used for diagnosis, and what this means to her as she ages. Adequate calcium intake of 1500 mg daily, weight bearing exercise three times a week, and vitamin D supplementation of at least 400 units daily is suggested. She is advised to avoid tobacco, coffee, and steroids if possible. Benefits of an active lifestyle discussed as well. All questions answered. We discussed the different forms of medical treatment for osteoporosis, in case she might need this in the future. She will repeat the bone density testing in 2 years to assess her progress.She is aware that if her bone density diminished significantly in the intervening 2 years she may need medical therapy at that time. She is encouraged to try this preventive therapy first. Return for routine annual exam as scheduled. Face to face discussion for 30 minutes. Not available 06/19/2022 12:43:28 05/08/2023 [id number] urinary tract infection in women information Not available 05/08/2023 10:37:29 atrophic vaginit is: care instructions Not available 05/08/2023 10:37:29 learning about healthy weight Not available 05/08/2023 10:37:29 She is here for annual, is still having significant nocturia and incontinence. she saw a urologist, and also a urogynecologist, who recommended botox, however the patient cannot afford that. She had tried the estradiol vaginal cream but felt it did nothing. She is to have knee surgery soon. she notes dysuria for a few weeks but cannot give us a urine specimen today. note from 2021: She is here for annual exam, had bladder tuck with Dr. Jania Brown in 09/17, but has not noted any improvement in her incontinence or her nocturia every hour, with incontinence on the way to the bathroom. She is not on vaginal estrogen. 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 No surgery is planned. She is given clean catch products and lab slip, to go to lab to drop off urine clean catch for culture. She appears to be doing well. Monthly self breast exam was taught, and stressed, and is advised to call if she discovers any new mass in the breast. Not available 05/08/2023 10:38:31 05/26/2025 [id number] atrophic vaginit is: care instructions Not available 05/26/2025 09:42:51 atrophic vaginit is: care instructions Not available 05/26/2025 09:28:10 learning about healthy weight Not available 05/26/2025 09:28:10 She is here for annual, her urinary stress incontinence is getting worse, she is seeing a urologist who is going to inject a bump to help it but she would also like to revisit the estradiol vaginal therapy we had previously spoken about. Note from 2022: She is here for annual, is still having significant nocturia and incontinence. she saw a urologist, and also a urogynecologist, who recommended botox, however the patient cannot afford that. She had tried the estradiol vaginal cream but felt it did nothing. She is to have knee surgery soon. she notes dysuria for a few weeks but cannot give us a urine specimen today. She appears to be doing well. We discussed estradiol cream versus tabs and she prefers the cream daily, she wants to try that again. Monthly self breast exam was taught, and stressed, and is advised to call if she discovers any new mass in the breast. Not available 05/26/2025 09:45:28 Reason for Referral None Reported. Results Created Date Observation Date Name Description Value Unit Range Abnormal Flag Note LastModifiedBy Organization Detail LastModifiedTime 05/05/20 22 05/05/2022 PAP1C ASE [id number] ThinP rep Pap, Image d: NEGAT EZEQUIEL FOR SQUAM OUS INTRA EPITH ELIAL LESIO N AND MALVIKI LAWLER . Atrop hy. Rosette Cullen , CT( CP) (Case elect joellegwyn varela carla d 05 13 2022) ADEQU ACY: Satis facto ry . SOURC E: ThinP rep Pap HPV IF Ascus : Refle x 16 and 18, Cervi shai, Image d CLINI SHAI INFOR MATIO N: HPV If Diagn osis of ASCUS . Menop ause, [Z12. 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 Satis facto ry for evalu ation . Endoc ervic al/tr ansfo rmati on zone ABSEN T. Clini shai Histo ry: Date of Last Menst rual Perio d: not avail able Menst rual Histo ry: Hyste recto my Post- menop ausal Contr acept ezequiel Histo ry: not avail able Ancil tiesha Testi ng: HPV (ASCU S) Case image d by the ThinP rep Imagi ng Syste m with lian gaines or ashli smith. Perfo rmed at [facility] ate Refer ence Labor atory depar tment of Cytol ogy, [address] [place] Clini shai Histo ry (othe r): z12.4 , lps 05-05 neg Phone #: [phone], On-Ca ll Patho logis t: [id number] Not Available [facility] (Centralized Electronic Ordering - All Locations) Patient Can Go To The Location Of Their Choice, [id number] 05/16/2023 16:51:37 06/09/2006/09/2020 bone densi ty No observ ation record ed. [facility] Imaging Dept [address] [place], [address], 06/14/2020 08:24:36 06/09/2006/09/2020 MAMMO , scree estela, digit al, bilat eral No observ ation record ed. [facility] Dept [address] [place], [address], 06/11/2020 11:47:29 06/15/2006/09/2020 bone densi ty No observ ation record ed. BARCODE [facility] Radiology [address] [facility] [address], [place], [address], 06/15/2020 08:12:33 06/15/2006/15/2022 bone densi ty No observ ation record ed. [email or web address] [facility] Imaging Dept [address] [place], [address], 06/15/2022 13:51:39 06/15/2006/15/2022 MAMMO , scree estela, digit al, bilat eral No observ ation record ed. [facility] Imaging Dept [address] [place], [address], 06/15/2022 14:40:41 06/19/20 22 06/15/2022 bone densi ty No observ ation record ed. [facility] [address] [facility] [address], [place], [address], 06/20/2022 08:04:14 Result Notes None recorded. Problems Name Problem SNOMED Code Status Onset Date Resolution Date Notes Provider Name and Address Organization Details Recorded Time Hypertensi ve disorder [id number] Active Rere Simmons MD [address] [facility], [place], [address], [place] [facility], 08:50:51 Depressive disorder 83796869 Active Rere Simmons MD [address], [place], [address], [place] [facility], 5 08:50:51 Arthritis 0605651 Active Rere Simmons MD [address], [place], [address], [place] [facility], 5 08:50:51 Urinary incontinen ce 550141305 Active She has some urinary incontinen ce, she sees Dr. Prieto, and is tkaing medication for this. 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 Rere Simmons MD [address], [place], [address], [place] [facility], 6 08:27:24 Menopausal syndrome 956770809 Active 2015 Rere Simmons MD [address], [place], [address], [place] [facility], 6 08:26:56 Candidiasi s of skin 56293417 Active 2017 Rere Simmons MD [address], [place], [address], [place] [facility], 8 11:36:20 Osteopenia 117933124 Active 2019 Rere Simmons MD [address], [place], [address], [place] [facility], 0 09:22:34 Atrial fibrillati on 45458308 Active 2021 Heather najera [place] - [facility], 2 08:55:33 Atrophic vaginitis 02527396 Active 2021 Rere Simmons MD [address], [place], [address], [place] [facility], 2 09:40:02 Problem Notes None recorded. Procedures Surgical History Date Name Laterality Status Provider Name and Address Organization Details Recorded Time 06/15/20 24 Most Recent Mammogram completed Savanna Baltazar in [facility], 05/26/2025 09:22:39 09/17/19 22 insertion of single incision mid-urethral mini-sling completed Rere Simmons MD [address], [place], [address], [facility], 05/05/2022 09:38:10 12/06/19 17 Other completed Savanna Baltazar in [facility], 04/25/2017 08:11:16 04/25/20 16 Most Recent Bone Density completed Savanna Baltazar in [facility], 04/23/2017 11:01:40 08/27/18 99 Other completed Savanna Baltazar in [facility], 02/19/2013 11:15:16 08/27/18 97 Hysterectomy completed Rere Simmons MD [address], [place], [address], [facility] - [facility], 02/19/2013 21:15:25 Imaging Results None recorded. Procedure Notes None recorded. Medical Equipment None Reported. Allergies No known drug allergies Medications Name Sig Start Date Stop Date Status Note LastModified by Organization Details LastModified Time celecoxib 200 mg capsule 04/26 completed Not Available Not Available Not Available atorvastati n 80 mg tablet TAKE 1 TABLET BY MOUTH AT BEDTIME. 06/19 completed Not Available Not Available Not Available acetaminoph en 325 mg tablet TAKE 1 TABLET BY MOUTH EVERY 4 HOURS NEEDED FOR FEVER 05/05 completed Not Available Not Available Not Available prednisone 10 mg tablet TAKE 6 TABS DAILY X 3 DAYS, THEN 4 TABS X 3 DAYS, THEN 2 TABS X 3 DAYS 04/30 completed Not Available Not Available Not Available oxybutynin chloride ER 15 mg tablet,exte nded release 24 hr active Not Available Not Available Not Available trazodone 50 mg tablet 06/14 completed Not Available Not Available Not Available cetirizine 10 mg tablet TAKE 1 TABLET BY MOUTH EVERY DAY 04/30 completed Not Available Not Available Not Available tolterodine ER 4 mg capsule,ext ended release 24 hr TAKE 1 CAPSULE BY MOUTH ONCE DAILY 04/30 completed Not Available Not Available Not Available lisinopril 20 mg tablet TAKE 1 TABLET BY MOUTH EVERY DAY 05/08 completed Not Available Not Available Not Available prednisone 20 mg tablet TAKE 1 TABLET BY MOUTH TWICE A DAY FOR 8 DAYS 04/24 completed Not Available Not Available Not Available desmopressi n 0.2 mg tablet TAKE 1 TABLET BY MOUTH EVERYDAY AT BEDTIME 05/08 completed Not Available Not Available Not Available triamcinolo ne acetonide 0.5 % topical ointment APPLY THIN LAYER TO AFFECTED AREA(S) TOPICALLY 2 X DAILY X 7 DAYS. AVOID EYES/FACE /GENITALS 05/08 completed Not Available Not Available Not Available amlodipine 5 mg tablet TAKE 1 TABLET BY MOUTH EVERY DAY active Not Available Not Available No t Available ketorolac 0.5 % eye drops PLEASE SEE ATTACHED FOR DETAILED DIRECTION S 05/08 completed Not Available Not Available Not Available prednisolon e acetate 1 % eye drops,suspe nsion PLACE ONE DROP BOTH EYES TWICE A DAY 04/25 completed Not Available Not Available Not Available trazodone 100 mg tablet TAKE 1 TABLET BY MOUTH EVERYDAY AT BEDTIME active Not Available Not Available No t Available amlodipine 10 mg tablet TAKE 1 TABLET BY MOUTH EVERY DAY active Not Available Not Available No t Available cephalexin 500 mg capsule TAKE 1 CAPSULE BY MOUTH EVERY 12 HOURS FOR 10 DAYS 05/05 completed Not Available Not Available Not Available acyclovir 5 % topical ointment APPLY TOPICALLY EVERY 3 HOURS WHILE AWAKE 05/04 completed Not Available Not Available Not Available chlorpromaz ine 25 mg tablet TAKE 1 TABLET BY MOUTH TWICE A DAY 05/05 completed Not Available Not Available Not Available warfarin 5 mg tablet TAKE 1 TABLET BY MOUTH ONCE DAILY DIRECTED BY [facility] 05/08 completed Not Available Not Available Not Available nystatin-tr iamcinolone 100,000 unit/g-0.1 % topical cream APPLY TO AFFECTED AREA TWICE A DAY IN THE MORNING AND IN THE EVENING 05/08 completed Not Available Not Available Not Available sertraline 25 mg tablet TAKE 1 TABLET BY MOUTH EVERY DAY 05/08 completed Not Available Not Available Not Available zolpidem 5 mg tablet 05/08 completed Not Available Not Available Not Available fluvoxamine 50 mg tablet Take 1 tablet every day by oral route. active Not Available Not Available No t Available metoprolol succinate ER 25 mg tablet,exte nded release 24 hr TAKE 1 TABLET BY MOUTH EVERY DAY active Not Available Not Available No t Available nystatin 100,000 unit/gram topical powder APPLY TO AFFECTED AREA TWICE A DAY 05/04 completed Not Available Not Available Not Available estradiol 0.01% (0.1 mg/gram) vaginal cream Insert 0.5 g every day by vaginal route for 85 days. 2024 active Not Available Not Available Not Avai lable methylpredn isolone 4 mg tablets in a dose pack active Not Available Not Available Not Available hydroxyzine HCl 10 mg tablet TAKE 1 TABLET BY MOUTH 3 TIMES A DAY FOR 10 DAYS 04/24 completed Not Available Not Available Not Available amoxicillin 875 mg-potassiu m clavulanate 125 mg tablet TAKE 1 TABLET BY MOUTH TWICE A DAY FOR 10 DAYS 05/04 completed Not Available Not Available Not Available rizatriptan 5 mg tablet TAKE 1 TABLET BY MOUTH DAILY NEEDED FOR MIGRAINE, MAY REPEAT DOSE EVERY 2 HOURS FOR A MAX OF 3 05/05 completed Not Available Not Available Not Available tobramycin 0.3 %-dexametha sone 0.1 % eye drops,suspe nsion active Not Available Not Available Not Available oxycodone 5 mg tablet TAKE 1 TABLET BY MOUTH EVERY 6 HOURS NEEDED FOR PAIN 05/05 completed Not Available Not Available Not Available desmopressi n 0.1 mg tablet TAKE 1 TABLET BY MOUTH EVERY DAY AT BEDTIME 04/26 completed Not Available Not Available Not Available Adult Low Dose Aspirin 81 mg tablet,monika yed release Take 1 tablet every day by oral route. 05/26 completed Not Available Not Available Not Available ciclopirox 0.77 % topical cream APPLY TOPICALLY TO AFFECTED AREA TO FEET 2X DAILY X30 DAYS 05/08 completed Not Available Not Available Not Available escitalopra m 10 mg tablet TAKE 1 TABLET BY MOUTH EVERY DAY 04/30 completed Not Available Not Available Not Available Restasis 0.05 % eye drops in a dropperette PLACE ONE DROP IN BOTH EYES TWICE A DAY 04/25 completed Not Available Not Available Not Available Premarin 0.625 mg/gram vaginal cream active Not Available Not Available Not Available metoprolol tartrate 25 mg tablet TAKE 1/2 TABLET BY MOUTH TWICE DAILY. 05/08 completed Not Available Not Available Not Available mirtazapine 7.5 mg tablet 05/04 completed Not Available Not Available Not Available nitrofurant oin monohydrate /macrocryst als 100 mg capsule TAKE 1 CAPSULE BY MOUTH TWICE A DAY FOR 7 DAYS 05/08 completed Not Available Not Available Not Available trospium 20 mg tablet TAKE 1 TABLET (20 MG) ORALLY 2 TIMES A DAY FOR 30 DAYS ADMINISTE R ON AN EMPTY STOMACH active Not Available Not Available No t Available fluocinonid e 0.1 % topical cream APPLY TOPICALLY TWICE A DAY FOR 14 DAYS 06/19 completed Not Available Not Available Not Available B Complex 04/30 completed Not Available Not Available Not Available Gavilyte-C 240 gram-22.72 gram-6.72 gram-5.84 gram oral solution 04/26 completed Not Available Not Available Not Available Bioflex 04/26 completed Not Available Not Available Not Available Prevnar 13 (PF) 0.5 mL intramuscul ar syringe TO BE ADMINISTE RED BY PHARMACIS T FOR IMMUNIZAT ION active Not Available Not Available No t Available Multi For Her 05/08 completed Not Available Not Available Not Available Eliquis 5 mg tablet TAKE 1 TABLET BY MOUTH 2 TIMES A DAY. active Not Available Not Available No t Available Afluria 7853-0129(P F) 45 mcg (15 mcg x 3)/0.5 mL intramuscul ar syringe TO BE ADMINISTE RED BY PHARMACIS T FOR IMMUNIZAT ION active Not Available Not Available No t Available Fluzone High-Dose 3647-0882 (PF) 180 mcg/0.5 mL intramuscul ar syringe active Not Available Not Available N ot Available Shingrix (PF) 50 mcg/0.5 mL intramuscul ar suspension, kit active Not Available Not Available Not Available Eliquis DVT-PE Treatment 30-Day Starter 5 mg (74 tablets) in dose pack TAKE 2 TABLETS BY MOUTH TWO TIMES A DAY FOR 7 DAYS, THEN TAKE 1 TABLET BY MOUTH TWO TIMES A DAY INDEFINIT JB 10/24 /2022 completed Not Available Not Available Not Available Fluad 2017-19 65yr up(PF)45 mcg(15 mcgx3)/0.5 mL intramuscul ar syringe TO BE ADMINISTE RED BY PHARMACIS T FOR IMMUNIZAT ION active Not Available Not Available No t Available Fluzone High-Dose Quad (PF) 240 mcg/0.7 mL IM syringe TO BE ADMINISTE RED BY PHARMACIS T FOR IMMUNIZAT ION active Not Available Not Available No t Available Vitals Date Recorded Body weight Body mass index (BMI) Body height Heart rate Systolic And Diastolic Provider Name and Address Organization Details Last Updated DateTime 05/05/2022 487131.2 1 g 36.8 kg/m2 170.18 cm 83 /min 135/78 mm[Hg] Heather Baltazar in [facility], 05/05/2022 08:49:44 Date Recorded Body height Body temperature Body mass index (BMI) Body weight Heart rate Systolic And Diastolic Provider Name and Address Organization Details Last Updated DateTime 3 170.18 cm 97.2 [degF] 35.4 kg/m2 772442. 59 g 82 /min 121/61 mm[Hg] Savanna Baltazar in [facility], 3 09:54:53 Date Recorded Body weight Body mass index (BMI) Body height Body temperature Heart rate Systolic And Diastolic Provider Name and Address Organization Details Last Updated DateTime 5 491720. 39 g 37.1 kg/m2 170.18 cm 97.4 [degF] 79 /min 127/60 mm[Hg] Savanna Baltazar in [facility], 5 09:20:34 Date Recorded Body height Provider Name an d Address Organization Details Last Updated DateTime 06/19/2022 170.18 cm Heather butler in [facility], 06/19/2022 10:20:26 Social History Question Answer Notes LastModified by Organizat ion Details LastModified Time Tobacco Smoking Status Never Smoker Not Available [facility] 06/29/2020 03:19:39 What Is Your Level Of Caffeine Consumption? None [id number] Information not available 06/29/2020 In The 14 Days Before Symptom Onset, Have You Had Close Contact With A Laboratory-confirm ed COVID-19 While That Case Was Ill? No Information n ot available 05/05/2022 In The 14 Days Before Symptom Onset, Have You Had Close Contact With A Person Who Is Under Investigation For COVID-19 While That Person Was Ill? No Information not available 05/05/2022 Have You Been To An Area Known To Be High Risk For COVID-19? No Information not available 05/05/2022 What Type Of Diet Are You Following? REGULAR [id number] Information n ot available 06/29/2020 Which Illicit Or Recreational Drugs Have You Used? No [id number] Information not available 06/29/2020 Do You Reside In Or Have You Traveled To An Area Where Ebola Virus Transmission Is Active? No [id number] Information not available 06/29/2020 Education 2 Year College Information not available 02/19/2013 How Many Days In The Past Year Have You Had A Heavy Drinking Consumption (4+ Female, 5+ Male)? 0 Information no t available 04/24/2016 Are There Any Guns Present In Your Home? No Information not available 05/05/2022 High Number Of Sexual Partners No Information not available 04/24/2016 To Which Gender Do You Self-identify? Female Information n ot available 04/24/2016 Marital Status Informatio n not available 05/04/2020 What Was The Date Of Your Most Recent Tobacco Screening? 05/26/2025 Information not available 05/26/2025 What Is Your Relationship Status? Information not available 05/05/2022 Are You Sexually Active? No [id number] Information not available 06/29/2020 How Much Tobacco Do You Smoke? No [id number] Information not available 06/29/2020 General Stress Level Medium Information not available 05/08/2023 Have You Recently (within The Last 12 Weeks, Or During A Current ) Traveled To Or Lived In A Zika-affected Area? No Information not available 04/24/2016 Sex: Female Functional Status Question Answer Note LastModified by Organizat ion Details LastModified Time Do you use any illicit or recreational drugs? No Information not available 05/05/2022 Do you or have you ever used any other forms of tobacco or nicotine? No Information not available 05/05/2022 What is your level of alcohol consumption? None [id number] Information not available 06/29/2020 Do you or have you ever used smokeless tobacco? Never used smokeless tobacco [id number] Information not available 06/29/2020 Are you currently employed? No Information not available 05/05/2022 What is your occupation? retired Information not available 04/24/2016 Do you or have you ever used e-cigarettes or vape? Never used electronic cigarettes [id number] Information not available 06/29/2020 What is your exercise level? None knee issue Information not available 05/08/2023 Mental Status Question Answer Note LastModified by Organization D etails LastModified Time Do you feel stressed (tense, restless, nervous, or anxious, or unable to sleep at night)? [id number] Information not available 05/26/2025 Family History Relationship Description Onset Age of this Age Resolved Age Notes LastModified by Organization Details LastModified Time Mother Hypertensive disorder previo usly record ed as Hypert ension Not available 03/22/2015 08:49:48 Mother Heart disease aneury sm (previ ously record ed as Heart Proble m) Not available 03/22/2015 08:49:48 Mother Problem arthri tis (previ ously record ed as Other) Not available 03/22/2015 08:49:48 Father Hypertensive disorder previo usly record ed as Hypert ension Not available 03/22/2015 08:49:48 Father Substance abuse previo usly record ed as Alcoho l/Subs tance Abuse Not available 03/22/2015 08:49:48 Brother Malignant neoplasm of lung tmeczywor Not available 2016 08:10:33 Brother Substance abuse tmeczywor Not available 2017 09:52:13 Brother Disorder of thyroid gland cancer and throat cancer . tmeczywor Not available 05/08/2023 09:58:02 Medical History Condition Response Anesthesia complications N High Blood Pressure Y Candidate for MyRisk panel N Autoimmune Condition N Depression Y Lung Disease N Defects or Inherited Disease N History of Ovarian Cancer N BRCA testing in past N Anxiety Disorder Y Arthritis Y Infertility N History of Cancer N Endometriosis N Kidney or Bladder Problems Y Thyroid Problems N GI Problems Y Anemia N History of Breast Cancer N CRISTINA exposure N Osteopenia N Psychiatric Illness N Diabetes N Headaches or Migraines Y Asthma N Hepatitis N Heart Disease N Hypertension Y Osteoporosis N Gynecological History Statement/Question Response If Post Menopausal, Age at Menopause 89 7 Age at Menarche 13 Most Recent Mammogram 06/15/2024 Age at First Child 21 Most Recent Bone Density 04/25/2016 Obstetrics History GPAL:G 3 P 2 0 1 2 Type Value Full Term 2 Spontaneous 1 Living 2 Total 3 Immunizations Vaccine Type Date Status Note Provider Nam e and Address Organization Details Recorded Time Influenza, split virus, quadrivalent, preservative 5 completed JUAN Jennings in [facility], 04/24/2016 08:11:07 Influenza, split virus, quadrivalent, preservative 0 completed JUAN Cooper in [facility], 05/04/2020 09:42:32 zoster recombinant 0 completed JUAN Jennings in [facility], 05/08/2023 09:48:31 Influenza, adjuvanted, trivalent, PF 8 completed JUAN Jennings in [facility], 05/08/2023 09:48:31 zoster recombinant 0 completed JUAN Jennings in [facility], 05/08/2023 09:48:31 Influenza, adjuvanted, quadrivalent, PF 1 completed JUAN Jennings in [facility], 05/08/2023 09:48:31 COVID-19, mRNA, LNP-S, PF, 30 mcg/0.3 mL dose 1 completed [place], [place] [facility], 05/08/2023 09:48:31 COVID-19, mRNA, LNP-S, PF, 30 mcg/0.3 mL dose 1 completed [place] [facility], 05/08/2023 09:48:31 COVID-19, mRNA, LNP-S, PF, 30 mcg/0.3 mL dose 1 completed [place] [facility], 05/08/2023 09:48:31 COVID-19, mRNA, LNP-S, PF, 30 mcg/0.3 mL dose, hans-sucrose 2 completed [place]ec[place] [facility], 05/08/2023 09:48:31 pneumococcal polysaccharide PPV23 5 completed [place] [facility], 05/08/2023 09:48:31 Td(adult) unspecified formulation 5 completed [place] [facility], 05/08/2023 09:48:31 Tdap 2 completed [place] [facility], 05/08/2023 09:48:31 Tdap 8 completed [place] [facility], 05/08/2023 09:48:31 Pneumococcal conjugate PCV 13 7 completed [place] [facility], 05/08/2023 09:48:31 Pneumococcal conjugate PCV 13 9 completed [place] [facility], 05/08/2023 09:48:31 zoster live 2 completed [place] [facility], 05/08/2023 09:48:31 zoster live 2 completed [place] [facility], 05/08/2023 09:48:31 Influenza, high-dose, trivalent, PF 9 completed [place] [facility], 05/08/2023 09:48:31 Influenza, high-dose, trivalent, PF 7 completed [place] [facility], 05/08/2023 09:48:31 Influenza, split virus, trivalent, preservative 2 completed [place]ec[place] [facility], 05/08/2023 09:48:31 Influenza, split virus, trivalent, preservative 4 completed [place]ec[place] [facility], 05/08/2023 09:48:31 Influenza, split virus, trivalent, preservative 1 completed [place]ec[place] [facility], 05/08/2023 09:48:31 Influenza, split virus, trivalent, preservative 5 completed [place]ec[place] [facility], 05/08/2023 09:48:31 Influenza, split virus, trivalent, preservative 3 completed [place] [facility], 05/08/2023 09:48:32 Influenza, split virus, trivalent, preservative 8 completed [place] [facility], 05/08/2023 09:48:32 Influenza, split virus, trivalent, preservative 3 completed [place]ec[place] [facility], 05/08/2023 09:48:32 Influenza, split virus, trivalent, preservative 6 completed [place]ec[place] [facility], 05/08/2023 09:48:32 Influenza, split virus, trivalent, preservative 0 completed [place]ec[place] [facility], 05/08/2023 09:48:32 Influenza, split virus, trivalent, preservative 9 completed [place] Mec[place] [facility], 05/08/2023 09:48:32 Influenza, split virus, trivalent, preservative 2 completed [place] Mec[place] [facility], 05/08/2023 09:48:32 Influenza, split virus, trivalent, preservative 7 completed [place] [facility], 05/08/2023 09:48:32 Influenza, split virus, trivalent, preservative 6 completed [place] [facility], 05/08/2023 09:48:32 Influenza, split virus, trivalent, preservative 5 completed [place] [facility], 05/08/2023 09:48:32 Novel [id number], preservative-free 9 completed [place] [facility], 05/08/2023 09:48:32 Td (adult), 2 Lf tetanus toxoid, preservative free, adsorbed 9 completed [place] M[place] [facility], 05/08/2023 09:48:32 Influenza, adjuvanted, quadrivalent, PF 2 completed [place] [facility], 05/08/2023 09:53:45 Pneumococcal conjugate PCV20, polysaccharide SMF317 conjugate, adjuvant, PF 4 completed Not Available [facility] 05/26/2025 09:17:00 pneumococcal polysaccharide PPV23 3 completed Not Available [facility] 05/26/2025 09:17:00 Influenza, adjuvanted, quadrivalent, PF 3 completed Not Available [facility] 05/26/2025 09:17:00 Influenza, high-dose, trivalent, PF 5 completed Not Available [facility] 05/26/2025 09:17:00 Past Encounters Encounter ID Performer Location Encounter Start Date Encounter Closed Date Diagnosis/Indication Diagnosis SNOMED-CT Code Diagnosis ICD10 Code Diagnosis IMO Codes Diagnosis Note [id number] MD RERE Hong MD [address] [place] [address],[place] [address] 02/19/2013 10:49:45 02/20/2013 11:00:02 [id number] MD RERE Hong MD [address] [place] [address], [place] [address] 03/17/2014 07:45:33 03/17/2014 09:06:51 Specialized medical examination 05943171 Screening for malignant neoplasm of rectum 382135700 Screening mammography [id number] MD RERE Hong MD [address] [place] [address],[place] [address] 03/22/2015 08:32:18 03/22/2015 09:47:11 Specialized medical examination [id number] Screening for malignant neoplasm of rectum 679729684 Screening mammography [id number] MD RERE Hong MD [address] [place] [address],[place] [address] 04/24/2016 08:04:13 04/24/2016 10:10:46 Screening for malignant neoplasm of cervix 637097803 Z12.4 Screening mammography 24 992348 Z12.31 Menopausal syndrome 1237 84190 N95.9 [id number] MD RERE Hong MD [address] [place] [address],[place] [address] [place] [address] 04/25/2017 08:02:16 04/25/2017 10:22:36 Screening for malignant neoplasm of cervix 167271754 Z12.4 Screening mammography 24 115783 Z12.31 Cares for self 694912066 Z76.89 [id number] MD RERE Hong MD [address] [place] [address] 04/26/2018 09:18:18 04/26/2018 14:14:03 Screening for malignant neoplasm of cervix 251649538 Z12.4 Screening mammography 24 026988 Z12.31 Candidiasis of skin 4988 3006 B37.2 [id number] MD RERE Hong MD [address] [place] [address] 04/30/2019 10:03:27 04/30/2019 11:36:42 Screening for malignant neoplasm of cervix 860232163 Z12.4 Screening mammography 24 935130 Z12.31 [id number] MD RERE Hong MD [address] [place] [address] 05/01/2019 14:28:00 05/01/2019 15:51:40 Dysuria 49828177 R30.0 [id number] MD RERE Hong MD [address] [place] [address] 5 05/04/2020 09:33:47 05/04/2020 11:14:34 Screening for malignant neoplasm of cervix 685151277 Z12.4 Screening mammography 24 328261 Z12.31 Screening for osteoporosis 558879415 Z13.820 [id number] MD RERE Hong MD [address] [place] [address] 5 06/14/2020 09:01:07 06/14/2020 13:56:38 Osteopenia 062163208 M85.852 [id number] MD RERE Hong MD [address] [place] [address] 5 05/05/2022 08:39:48 05/05/2022 09:55:16 Screening for malignant neoplasm of cervix 100302300 Z12.4 Screening mammography 24 529585 Z12.31 Screening for osteoporosis 722104351 N95.8 Atrophic vaginitis 80237 000 N95.2 Atrial fibrillation 4943 6004 I48.91 [id number] MD RERE Hong MD [address] [place] [address], [address] [place] [address] 06/19/2022 10:17:59 06/19/2022 14:44:12 Osteopenia 310985102 M85.852 Menopausal syndrome 1237 04552 N95.9 [id number] MD RERE Hong MD [address] [place] [address], [address] [place] [address] 05/08/2023 09:44:51 05/08/2023 11:40:13 Screening for malignant neoplasm of cervix 627712484 Z12.4 Screening mammography 24 600803 Z12.31 Screening for osteoporosis 577810717 N95.8 Dysuria 71451243 R30.0 [id number] MD RERE Hong MD [address] [place] [address], [place] [address] 05/26/2025 09:15:05 05/26/2025 14:51:10 Screening for malignant neoplasm of cervix 407438128 Z12.4 Screening mammography 24 244429 Z12.31 Screening for osteoporosis 875080712 N95.8 Atrophic vaginitis 98258 000 N95.2 Health Concerns Section Related Observation LastModified by Organization Detai ls LastModified Time None Recorded Concern Status LastModified by Organization Details LastModified Time None Recorded Advance Directives Directive None Recorded Payers Insurance Date Sequence Insurance Name Policy Number Policy Machuca Covered Member ID Machuca Member ID Guarantor Name 05/26/2025 1 [facility] MEDICARE ADVANTAGE PLAN (MEDICARE REPLACEMENT HMO) [id number] Geri Donis [id number] Geri Donis 05/26/2025 1 [facility] [id number] Geri Donis [id number] Geri Donis 05/26/2025 1 [facility] BLUE (MEDICARE REPLACEMENT HMO) [id number] Geri Donis [id number] Geri Donis Notes Date Note Type Note Provider Name and Address Organization Details Recorded Time 06/14/2020 text/html This visit is a phone telehealth visit. The patient consented to the visit by phone. The patient was at home at the time of the call and the provider and patient were the only people on the line. I was at [address] [place] [address], [place] [address], [place], [place], at the time of the call. She had a normal bone density in 2016. Her recent bone density showed a significant loss however, from 6 to 9% in all parameters. She does not really eat much dairy, she does take an MVI in the morning, but little else for calcium during the day, other than her 2 glasses of milk. milk. Rere Simmons MD [address],[place] [address], [place], [address], [facility], 06/14/2020 10:40:58 05/05/2022 text/html She is here for annual exam, had bladder tuck with Dr. Jania Brown in 09/17, but has not noted any improvement in her incontinence or her nocturia every hour, with incontinence on the way to the bathroom. She is not on vaginal estrogen. 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 No surgery is planned. 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 Her grandson Micah is 10, and lockdown has been difficult, He tore his mother's place apart, he is autistic nad nearly nonverbal.She is using the NyStop powder with good results, does not need a refill at this time. Rere Simmons MD [address], [place], [address], [facility], 05/05/2022 09:41:59 06/19/2022 text/html The patient was agreeable to this plan.She is aware of the limitations caused by the covid restrictions, and this phone call, but was appreciative of the efforts to complete the evaluation. She has a recent bone density that showed worsening osteopenia, she lost 4% to 7% bone density in the two femurs. She does not take a calcium or vitamin d supplement. Rere Simmons MD [address], [place], [address], [facility], 06/19/2022 12:43:48 05/08/2023 text/html She is here for annual, is still having significant nocturia and incontinence. she saw a urologist, and also a urogynecologist, who recommended botox, however the patient cannot afford that. She had tried the estradiol vaginal cream but felt it did nothing. She is to have knee surgery soon. note from 2021: She is here for annual exam, had bladder tuck with Dr. 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 No surgery is planned. Rere Simmons MD [address], [place], [address], [facility], 05/08/2023 10:38:52 05/26/2025 text/html She is here for annual, her urinary stress incontinence is getting worse, she is seeing a urologist who is going to inject a bump to help it but she would also like to revisit the estradiol vaginal therapy we had previously spoken about. Note from 2022: She is here for annual, is still having significant nocturia and incontinence. she saw a urologist, and also a urogynecologist, who recommended botox, however the patient cannot afford that.She had tried the estradiol vaginal cream but felt it did nothing. She is to have knee surgery soon.she notes dysuria for a few weeks but cannot give us a urine specimen today. Rere Simmons MD [address], [place], [address], [facility], 05/26/2025 09:45:53 OBGyn Episode No OBEpisode recorded.
--- OUTSIDE RECORDS SUMMARY | 2025-05-27 12:16 | XMS_ITS | Patient Health Record ---
Author [facility] Address [address] [place] [address] Care Team Providers Care Mud Analysis Supervisor Name Role Phone Tye Cohen Primary Care Provider Spencer Grubbs Unavailable [phone] Allergies Allergen (clinical drug ingredient) Drug/Non Drug [...] W/U Status Risk Notes Problem Tinea unguium (539194871) Tinea unguium (B35.1) Active confirmed Problem Acquired hammer toe of left foot (655540519906 9103) Hammer toe of left foot (M20.42) Active confirmed Improvemen t, T2 Plan Of Treatment Pending Test Test Name Order Date [id number] NAIL, 6 OR MORE 04/01/2021 52418-IMKTRGD NAIL, 6 OR MORE 06/17/2021 26463-UJVDSUO NAIL, 6 OR MORE 09/20/2021 07438-JQFJPUT NAIL, 6 OR MORE 11/25/2021 91395-NWTBWIJ NAIL, 6 OR MORE 02/10/2022 37998-BIKNWCR NAIL, 6 OR MORE 03/28/2022 54719-XCMPXGH NAIL, 6 OR MORE 06/20/2022 65419-YMHFNXZ NAIL, 6 OR MORE 09/05/2022 06963-GUFDMWK NAIL, 6 OR MORE 12/05/2022 31390-EUMOTXE NAIL, 6 OR MORE 09/18/2023 01606-Lrdmempa Plate 04/01/2021 95966-SDY 06/20/2021 33811-LDC 02/10/2022 83542-TJO 12/05/2022 26837-ANC 12/29/2022 82166-OES 05/30/2022 37733- Debride <25 sq cm 01/12/2023 04045- Debride <25 sq cm 09/05/2022 62639- Debride <25 sq cm 03/28/2022 53628-BVVUBHS SKIN/TISSUE 06/20/2022 02349-SQHVAZH SKIN/TISSUE 12/22/2022 64267-EBTIRPP SKIN/TISSUE 02/24/2022 19632-JUDIMTC SKIN/TISSUE 07/05/2021 62223-GBSIQCC SKIN/TISSUE 12/29/2022 93472-GIJKZFO SKIN/TISSUE 01/12/2023 59300 - Tenotomy, open flexor 12/04/2023 04456 - Tenotomy, open flexor 12/18/2023 Insurance Providers Payer Name Payer Address Payer Phone Subscriber Number Group Number Insured Name Patient Relationship to Insured Coverage Start Date Coverage End Date [facility] [address] [place] [address] [phone] [id number] [employer] Geri Self - patient is [...] History Reason Date(Month/Year) Ultrasound L leg 11/22/21 RETIREMENT/[facility] Fall on 03/01/22 blood clots mild 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
--- OUTSIDE RECORDS SUMMARY | 2025-05-27 12:16 | XMS_ITS | Continuity of Care Document ---
Author Organization [place] - [facility],, RERE HAMILTON MD Address [address] [address] Care Team Providers Care Grades 6 Through 8 Teacher Name Role Phone MARY ZUNIGA Primary Care Provider Assessment No assessment recorded. Plan of Treatment Reminders Order Date Submit Date Provider Last Modified By Organization Details Last Modified Time Details Appointments None recorded. Lab cytology report, thin prep, smear or scraping, cervical or vaginal 2024 025 [facility] (Centralized Electronic Ordering - All Locations), Patient Can Go To The Location Of Their Choice, [id number] 09:28:15 Referral None recorded. Procedures None recorded. Surgeries None recorded. Imaging MAMMO, screening, digital, bilateral - Breast Aspiration and/or Biopsy if needed 2024 025 [facility], [address] [facility], [facility] [address], [address], 5 14:51:11 bone density 2024 025 [facility], [address] [facility], [facility] [address], [place], [address], 5 14:51:11 Medication Orders estradiol 0.01% (0.1 mg/gram) vaginal cream 2024 025 [id number], [address] [facility] [place], [address], 5 09:42:56 Patient TargetsNo targets recorded. Patient Instructions Encounter Date Encounter Id Patient Instructions Last Modified By Organization Details Last Modified Time 05/26/2025 [id number] atrophic vaginitis: care instructions Not available 05/26/2025 09:42:51 atrophic vaginitis: care instructions Not available 05/26/2025 09:28:10 learning [...] cannot give us a urine specimen today. _ She appears to be doing well. We discussed estradiol cream versus tabs and she prefers the cream daily, she wants to try that again. Monthly self breast exam was taught, and stressed, and is advised to call if she discovers any new mass in the breast. Not available 05/26/2025 09:45:28 Reason for Referral None Reported. Problems Name Problem SNOMED Code Status Onset Date Resolution Date Notes Provider Name and Address Organization Details Recorded Time Hypertensi ve disorder 49338488 Active Rere Hamilton MD [address], [place], 5, [place] - [facility], 5 08:50:51 Depressive disorder 90739516 Active Rere Hamilton MD [address], , [place] - [facility], 08:50:51 Arthritis 7087478 Active MD Raven Hong [address] [address], 5, [employer] - [facility], 5 08:50:51 Urinary incontinen ce 287621964 Active She has some urinary incontinen ce, she sees Dr. Prieto, and is tkaing medication for this. 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 use Rere Hamilton MD [address], [place], [address], [place] - [facility], 6 08:27:24 Menopausal syndrome 313752682 Active 2015 Rere Hamiltno MD [address], [place], [address], [place] - [facility], 6 08:26:56 Candidiasi s of skin 84266647 Active 2017 Rere Hamilton MD [address], [place], [address], [place] - [facility], 8 11:36:20 Osteopenia 194911989 Active 2019 Rere Hamilton MD [address], [place], [address], [place] - [facility], 0 09:22:34 Atrial fibrillati on 98926359 Active 2021 Heather najera [place] - [facility], 2 08:55:33 Atrophic vaginitis 54372830 Active 2021 Rere Hamilton MD [address], [place], [address], [place] - [facility], 2 09:40:02 Problem Notes None recorded. Procedures Surgical History Date Name Laterality Status Provider Name and Address Organization Details Recorded Time 06/15/20 24 Most Recent Mammogram completed Savanna Pierre [facility], 05/26/2025 09:22:39 09/17/19 22 insertion of single incision mid-urethral mini-sling completed Rere Hamilton MD [address], [place], [address], [place] - [facility], 05/05/2022 09:38:10 12/06/19 17 Other completed Savanna Kindrastevenalinehalina [place] - [facility], 04/25/2017 08:11:16 04/25/20 16 Most Recent Bone Density completed Savanna Dai [place] - [facility], 04/23/2017 11:01:40 08/27/18 99 Other completed Savanna Kindrachristiano [place] - [facility], 02/19/2013 11:15:16 08/27/18 97 Hysterectomy completed Rere Hamilton MD [address], [place], [address], [place] - [facility], 02/19/2013 21:15:25 Imaging Results None recorded. [...] Available Not Available No t Available Afluria 1482-8302(P F) 45 mcg (15 mcg x 3)/0.5 mL intramuscul ar syringe TO BE ADMINISTE RED BY PHARMACIS T FOR IMMUNIZAT ION active Not Available Not Available No t Available Fluzone High-Dose 7718-6454 (PF) 180 mcg/0.5 mL intramuscul ar syringe [...] MOUTH TWO TIMES A DAY INDEFINIT JB 06/19 completed Not Available Not Available Not Available Fluad 2017- 65yr up(PF)45 mcg(15 mcgx3)/0.5 mL intramuscul ar [...] Address Organization Details Last Updated DateTime 5 718242. 39 g 37.1 kg/m2 170.18 cm 97.4 [degF] 79 /min 127/60 mm[Hg] Savanna Dai [place] - [facility], 5 09:20:34 Social History Question Answer Notes LastModified by Organizat ion Details LastModified Time Tobacco Smoking Status Never Smoker Not Available [facility] 06/29/2020 03:19:39 What Is Your Level Of Caffeine Consumption? None [id number] Information not available 06/29/2020 In The 14 [...] Type Of Diet Are You Following? REGULAR [id number] Information n ot available 06/29/2020 Which Illicit Or Recreational Drugs Have You Used? No [id number] Information not available 06/29/2020 Do You Reside In Or Have You Traveled To An Area Where Ebola Virus Transmission Is Active? No [id number] Information not available 06/29/2020 Education 2 Year [...] available 05/05/2022 Are You Sexually Active? No [id number] Information not available 06/29/2020 How Much Tobacco Do You Smoke? No [id number] Information not available 06/29/2020 General Stress Level [...] is your level of alcohol consumption? None [id number] Information not available 06/29/2020 Do you or have you ever used smokeless tobacco? Never used smokeless tobacco [id number] Information not available 06/29/2020 Are you currently employed? No Information not available 05/05/2022 What is your occupation? retired Information not available 04/24/2016 Do you or have you ever used e-cigarettes or vape? Never used electronic cigarettes [id number] Information not available 06/29/2020 What is your exercise level? None knee issue Information not available 05/08/2023 Mental Status Question Answer Note LastModified by Organization D etails LastModified Time Do you feel stressed (tense, restless, nervous, or anxious, or unable to sleep at night)? [id number] Information not available 05/26/2025 Family History Relationship [...] for MyRisk panel N Autoimmune Condition N Thyroid Problems N Kidney or Bladder Problems Y Depression Y GI Problems Y Lung Disease N Defects or Inherited Disease N Anemia N History of Ovarian Cancer N History of Breast Cancer N CRISTINA exposure N BRCA testing in past N Osteopenia N Psychiatric Illness N Diabetes N Anxiety Disorder Y Arthritis Y Headaches or Migraines Y Infertility N Asthma N History of Cancer N Endometriosis N Hepatitis N Heart Disease N Hypertension [...] quadrivalent, preservative 5 completed JUAN [facility], 04/24/2016 08:11:07 Influenza, split virus, quadrivalent, preservative 0 completed JUAN [facility], 05/04/2020 09:42:32 zoster recombinant 0 completed Savanna Meczywor null, [place] [facility], 05/08/2023 09:48:31 Influenza, adjuvanted, trivalent, PF 8 completed Savanna Meczywor null, [place] - [facility], 05/08/2023 09:48:31 zoster recombinant 0 completed Savanna Meczywor null, [place] [facility], 05/08/2023 09:48:31 Influenza, adjuvanted, quadrivalent, PF 1 completed Savanna Meczywor null, [place] - [...] [facility], 05/08/2023 09:48:32 Novel ivlohufyi-[id number], preservative-free 9 completed Savanna Meczywor null, [place] [facility], 05/08/2023 09:48:32 Td (adult), 2 Lf tetanus toxoid, preservative free, adsorbed 9 completed Savanna Meczywor null, [place] [facility], 05/08/2023 09:48:32 Influenza, adjuvanted, quadrivalent, PF 2 completed Savanna Meczywor null, [place] [facility], 05/08/2023 09:53:45 Pneumococcal conjugate PCV20, polysaccharide SAR056 conjugate, adjuvant, PF 4 completed Not Available [facility] 05/26/2025 09:17:00 pneumococcal polysaccharide PPV23 3 completed Not Available [facility] 05/26/2025 09:17:00 Influenza, adjuvanted, quadrivalent, PF 3 completed Not Available [facility] 05/26/2025 09:17:00 Influenza, high-dose, trivalent, PF 5 completed Not Available [facility] 05/26/2025 09:17:00 Past Encounters Encounter ID Performer Location Encounter Start Date Encounter Closed Date Diagnosis/Indication Diagnosis SNOMED-CT Code Diagnosis ICD10 Code Diagnosis IMO Codes Diagnosis Note [id number] MD RERE Hong MD [address] [place] [address] [address] [place] [address] 05/26/2025 09:15:05 05/26/2025 14:51:10 Screening for malignant neoplasm of cervix 519563705 Z12.4 Screening mammography 24 499597 Z12.31 Screening for osteoporosis 510983288 N95.8 Atrophic vaginitis 00815 000 N95.2 Health Concerns Section Related Observation LastModified by Organization Detai ls LastModified Time None Recorded Concern Status LastModified by Organization Details LastModified Time None Recorded Payers Encounter Date Sequence Insurance Name Policy Number Policy Machuca Covered Member ID Machuca Member ID Guarantor Name 05/26/2025 1 [facility] VADIM (MEDICARE REPLACEMENT HMO) [id number] Geri Donis [id number] Geri Donis Notes Date Note Type Note Provider Name and Address Organization Details Recorded Time 05/26/2025 text/html She is here for annual, [...] give us a urine specimen today. Rere Hamilton MD [address] [place] [address],[address], [place], [address], [place] - [facility], 05/26/2025 09:45:53 OBGyn Episode No OBEpisode recorded.
--- OUTSIDE RECORDS SUMMARY | 2025-05-27 12:16 | XMS_ITS | Clinical Summary ---
Author Organization [facility] Address [address] [place] [address] Care Team Providers Care Language Assistant Name Role Phone Unavailable Primary Care Provider [...] Parker Keenan OTHER SURGICAL HISTORY 02/12/14 PROCEDURE: ME NDSC NJX IMPLT MATRL URT&/BLDR NCK; COMMENT: [...] defers sleep study Dermatophytosis of nail 02/20/2006 DX:[place] tophytosis of nail; COMMENT: Dr. Herrera, DPM [...] Procedure Name Priority Date/Time Associated Diagnosis Comments [facility] SCREENING DIGITAL Routine 06/23/2024 12:47 PM EDT Encounter for screening mammogram for malignant neoplasm of breast [facility] DEXA AXIAL SKELETON Routine 06/15/2022 9:59 AM EDT Encounter for screening for osteoporosis from Last 3 Months or Most Recently Relevant to Health Maintenance Results * [facility] SCREENING DIGITAL (06/23/2024 12:47 PM EDT) Anatomical Region Laterality Modality Mammography 06/23/2024 9:10 AM EDT Narrative 06/23/2024 12:47 PM EDT [facility] Diagnostic Imaging Department [address] [place] [id number] Patient: GERI DONIS Fay Deras/Age/Sex: 1950 - 73 - F Unit#: [id number] Location/Status: SPDIMAM/REG CLI Mnemonic/Ordering Site: DIGSC/SPMAM Ordering Physician: MARY COHEN MD [facility] Screening Digital - 06/23/24 - 933 Report Status:Signed EXAM: [facility] Screening Digital EXAM DATE AND TIME: 06/23/2024 9:35 AM HISTORY: Screening. Left breast biopsy in 2006, pathology benign. COMPARISON: 06/19/23, 06/15/22, 06/13/21 TECHNIQUE: Bilateral digital breast tomosynthesis was performed in the CC and MLO projections. Computer aided detection with DeskActive 3D 3.1 was employed. TISSUE DENSITY: b. [...] [facility]amm[facility] at [facility] [address] [place] [address] Dictating Physician: FELICITY SHEPARD MD Electronically Signed by: FELICITY SHEPARD MD Dic Date/Time: 06/23/24 1247 Sign date/Time: 06/23/24 1247 Procedure Note Felicity Shepard MD - 06/28/2024 [facility] Diagnostic Imaging Department [address] [place] [address] Patient: GERI DONIS.O.B./Age/Sex: 1950 - 73 - F Unit#: [id number] Location/Status: SPDIMAM/REG CLI Mnemonic/Ordering Site: [facility] Ordering Physician: MARY COHEN MD [facility] Screening Digital - 06/23/24 - 34 Report Status:Signed EXAM: [facility] Screening Digital EXAM DATE AND TIME: 06/23/2024 9:35 AM HISTORY: Screening. Left breast biopsy in 2006, pathology benign. COMPARISON: 06/19/23, 06/15/22, 06/13/21 TECHNIQUE: Bilateral digital breast tomosynthesis was performed in the CCand MLO projections. Computer aided detection with DeskActive 3D 3.1was employed. TISSUE DENSITY: b. There [...] Mammogram performed at [facility] [place] [place] [address] Dictating Physician: FELICITY SHEPARD MD Electronically Signed by: FELICITY SHEPARD MD Dic Date/Time: 06/23/241246 Sign date/Time: 06/23/241246 Mary Cohen MD IMG BI PROCEDURES Final Result * [facility] DEXA AXIAL SKELETON (06/15/2022 9:59 AM EDT) Anatomical Region Laterality Modality Mammography 06/15/2022 8:58 AM EDT Narrative 06/15/2022 9:59 AM EDT [facility] Diagnostic Imaging Department [address] [place] [address] Patient: GERI DONIS Fay /Age/Sex: 1950 - 71 - F Unit#: [id number] Location/Status: SPDIMA/REG CLI Mnemonic[facility] Ordering Physician: RERE SIMMONS MD [facility] Dexa [...] probability of hip fracture of 1.2%. Code 31110 Dictating Physician: MILDRED HASSAN MD Electronically Signed by: MILDRED HASSAN MD Dic Date/Time: 06/15/22957 Sign date/Time: 06/15/22958 Procedure Note Mildred Hassan MD - 2022 [facility] Diagnostic Imaging Department [address] [place] [address] Patient: GERI ODNIS Fay GuerreroB./Age/Sex: 1950 - 71 - F Unit#: [id number] Location/Status: [facility] Mnemonic/[facility]ing [facility] Ordering Physician: RERE SIMMONS MD [facility] Dexa [...] density of the femurs bilaterally is 0.980 gm/ce9sogbv is 97% of that of young normals [...] probability of hip fracture of 1.2%. Code 34436 Dictating Physician: MILDRED HASSAN MD Electronically Signed by: MILDRED HASSAN MD Dic Date/Time: 06/15/2258 Sign date/Time: 06/15/22958 Rere Simmons MD [facility] [place] [place] BI PROCEDURES Final Resu lt from Last 3 Months or Most Recently Relevant to Health Maintenance Advance Directives Documents on File Type Date Recorded Patient Research Laboratory Manager Expl anation Health Care Decision (hx) 03/13/2022 AD COLES DIRECTIVE Health Care Decision (hx) 03/13/2022 AD COLES DIRECTIVE Health Care Decision (hx) 03/13/2022 AD COLES DIRECTIVE Health Care Decision (hx) 03/13/2022 AD COLES DIRECTIVE Health Care Decision (hx) 03/13/2022 AD COLES DIRECTIVE
== END 2025-05-27 10:43 | disposition home or self-care (01) ==
LOC: HO.HMGCX 10:42
PROVIDERS: PCP Internal Medicine; Visit Provider Urology
DX: R32 Unspecified urinary incontinence (principal); R35.1 Nocturia
CPT/HCPCS: 76857

== ENCOUNTER → 2025-05-27 11:04 | Outpatient (BNV) | payer MEDICARE, SELFPAY | PROVIDERS: PCP Internal Medicine; Visit Provider Radiology Diagnostic Radiology | DX: R35.1 Nocturia (principal) | CPT/HCPCS: 76857 ==

== ENCOUNTER 2025-05-28 13:09 | Outpatient (AMB) | payer MEDICARE, SELFPAY ==
--- OUTSIDE RECORDS SUMMARY | 2024-02-01 08:15 | XMS_ITS ---
Author Organization [facility] Address [address] [place] [address] Care Team Providers Care Head Neck Surgeon Name Role Phone Tye Cohen Primary Care Provider Unavailabl Spencer Nguyễn Unavailable [phone] Encounters Encounter Location Date Provider Diagnosis [address] [address] 02/01/2024 Spencer Ordoñez Plan Of Treatment No Information Progress Notes * Luzma DONISineDOB:[birth year] (74 yo F)Acc No.[id number]:02/01/2024 Progress Notes Patient: Geri RAMOS Provider: Jose Ordoñez DPM :1950 A ge:73 Y S ex:Female Date:02/01/2024 Address:[address] [place], [place] [phone] Pcp:Tye Cohen Subjective: * Chief Complaints: * [...] DPM Date: 0 02/01/2024 Generated for Lucilai ng/Famaryg/eTransmitting on: 1 02:34 PM EDT
--- NOTE | 2025-05-28 13:30 | A.OFFVIS_ITS ---
Intake Visit Reasons: cysto Intake Note: Patient presents today for a cystoscopy Urology Medication:None Blood Thinner: Apixaban Lot #: [id number] Exp:02/03/28 Gold Reclaimer Required: No Accompanied by: Self / Same As Patient Allergies bee pollen (bee stings) Allergy (Severe, Verified 05/28/25 13:31) Swelling environmental allergies Allergy (Mild, Verified 05/28/25 13:31) Rash Medication List - Last Reconciled 05/28/25 by Monalisa Melchor MD acetaminophen 650 mg (2 x 325 mg) PO Q6H PRN amlodipine 5 mg PO DAILY apixaban 5 mg PO BID docusate sodium 100 mg PO BID metoprolol succinate ER 25 mg PO DAILY solifenacin (Vesicare) 5 mg PO BEDTIME trazodone 100 mg PO BEDTIME HPI Comments Details: 05/28/25--Agustina is a 74-year-old female with complaints of urinary incontinence she is here for office cystoscopy. Renal ultrasound performed on 05/19/2024. Bilateral cortical echogenicity no renal stones or hydronephrosis. Bladder ultrasound 05/27/2025. It within normal limits. History of Present Illness The patient is a 74-year-old female presenting with urinary incontinence. The incontinence is most severe at night, requiring the use of multiple pads, and began approximately four years ago. Daytime leakage is minimal and managed with a thin pad, with no urge preceding the leakage. Trospium was previously tried but worsened the symptoms. Renal ultrasound findings included bilateral cortical echogenicity, and bladder ultrasound results were inconclusive due to inadequate hydration instructions. Estrogen cream has been prescribed by remote computer terminal operator to address vaginal atrophy, potentially impacting urinary symptoms. Results - Renal ultrasound (05/19/24): Bilateral cortical echogenicity, no renal stones or hydronephrosis - Bladder ultrasound: Inconclusive due to inadequate hydration Plan 1. Urinary Incontinence, findings consistent with intrinsic sphincter deficiency. - after filling of the bladder during cystoscopy, leakage was noted with Valsalva and coughing. - Obesity-comorbidity - Schedule urethral bulking procedure and trial anticholinergic medication for bladder spasms. 2. Bladder Wall Thickening - observed during cystoscopy - VESIcare 5 mg at bedtime. 04/24/25--74-year-old female presenting with urinary incontinence. She has mixed picture. The patient states that trospium did not help, made symptoms worse. She is interested in the bulkamid procedure. Further evaluation is scheduled for office cystoscopy and pelvic exam at that time. Renal US pending. 04/02/25 - The patient is a 74-year-old female presenting with urinary incontinence. - She has undergone two bladder surgeries, with the second surgery approximately five years ago due to complications with a sling procedure. - Post-surgery, she experienced strings protruding, which were addressed in- office by the surgeon. - She reports nocturnal urinary incontinence, requiring pad changes during the night due to significant leakage. - During the day, she experiences occasional urgency, particularly after consuming large beverages, but generally manages without incidents. - She has not been on any medication for urinary incontinence and has declined Botox treatment due to concerns about its safety. - She has a history of blood clot formation following COVID-19 vaccination, which led to hospitalization and treatment with heparin. - She denies any history of kidney problems, despite previous suggestions by another physician. - She reports the presence of sebaceous cysts in the genital area, which occasionally become noticeable and are self-managed. Results - Urinalysis: No signs of infection observed Plan - Initiate treatment with Trospium for bladder spasms, to be taken on an empty stomach. - Schedule an ultrasound of the kidneys and bladder to assess for any underlying issues. [facility] Medical History Urinary incontinence Severe obesity (BMI 35.0-39.9) with comorbidity Severe obesity Osteopenia Osteoarthritis of both shoulders Osteoarthritis of knees, bilateral Numerous skin moles Insomnia, unspecified Hypertension Hyperlipemia Generalized osteoarthritis Depression, major, in remission Classical migraine CKD (chronic kidney disease) stage 3, GFR 30-59 ml/min Atrial fibrillation Surgical History H/O: hysterectomy Office Procedures Cystoscopy Consent Discussed risk and benefit or proposed procedure with the patient. Information consent for procedure given to the patient. Discussed technical aspects, risks, benefits and alternatives in full. Addressed all of the patient's questions and concerns regarding the procedure. The patient demonstrated knowledge and understanding. They wish to proceed with this procedure. Preparation The patient was prepped in the usual manner. A protein chemist was present and in the room. Genitalia was prepped with betadine solution in a sterile manner. Lidocaine Jelly 2% was placed into the urethra and 16Fr flexible Olympus cystoscope was inserted into the meatus after adequate lubrication. Procedure Time out per protocol performed. Speculum used as indicated for adequate visualization of urethra, the flexible cystoscope is passed transurethrally: The bladder was inspected in its entirety with utilization retroflexion displaying: Tumor(s): no suspicious bladder lesions visualized Trabeculation: Mild to moderate Moderate Mucosal Erthema: Mild Orifices: normal shape and position Urethra: Bladder neck open Cystoscopy findings: Bladder wall thickening, no suspicious bladder lesions visualized 53995-Ltsjpvrmni DISPOSABLE SCOPE URO-G FLEXIBLE SCOPE Procedure code (CPT) selection complete Office Meds lidocaine HCl 2 % mucosal jelly in applicator Performing Provider: Monalisa Melchor MD [facility] Administered by: Elsie Gracia RN on 05/28/25 13:36 Dose Route Admin Location Dispensed Lot Number Expiration Date NDC Web Database Developer 10 mL intra-urethral 20 mL ciprofloxacin HCl 500 mg tablet Performing Provider: Monalisa Melchor MD Performing Location: [facility] [place] [facility] Administered by: Elsie Gracia RN on 05/28/25 13:36 Dose Route Admin Location Dispensed Lot Number Expiration Date NDC Web Database Developer 500 mg PO 1 tab phenazopyridine 200 mg tablet Performing Provider: Monalisa Melchor MD Performing Location: [facility] [place] [facility] Administered by: Elsie Gracia RN on 05/28/25 13:36 Dose Route Admin Location Dispensed Lot Number Expiration Date NDC Web Database Developer 200 mg PO 1 tab Results Reviewed Results Reviewed: Date of Service: 05/27/25 CLINICAL HISTORY: Nocturia Exam: Bladder ultrasound Comparison: US - US RENAL BI - 05/19/25 10:39 EDT Findings: Unremarkable urinary bladder, no calculus or mass, no apparent bladder wall thickening, prevoid bladder volume 131 mL, postvoid residual volume 54 mL, right ureteral jet is seen, left ureteral jet is not visualized. Impression: Prominent postvoid bladder residual volume, otherwise normal. Date of Service: 05/19/25 CLINICAL HISTORY: R32 - Unspecified urinary incontinence US Renal Comparison: None provided Findings: Right kidney normal size and mildly increased in echotexture, 11.1 cm length. Left kidney normal size and mildly increased in echotexture, 10.3 cm length. No collecting system dilatation of either kidney. Normal color Doppler. IMPRESSION: Mildly increased renal cortical echotexture as can be seen with mild medical renal disease. Clinical correlation. No hydronephrosis. Assessment & Plan Assessment & Plan (1) Intrinsic sphincter deficiency (ISD): Code(s): N36.42 - Intrinsic sphincter deficiency (ISD) Category: Medical (2) Bladder wall thickening: Code(s): N32.89 - Other specified disorders of bladder Category: Medical (3) LEXUS (stress urinary incontinence, female): Code(s): N39.3 - Stress incontinence (female) (male) Category: Medical Plan Plan 1. Urinary Incontinence, findings consistent with intrinsic sphincter deficiency. - after filling of the bladder during cystoscopy, leakage was noted with Valsalva and coughing. - Schedule urethral bulking procedure and trial anticholinergic medication for bladder spasms. 2. Bladder Wall Thickening - observed during cystoscopy - VESIcare 5 mg at bedtime. Orders: Orders AMB Cystoscopy Today R32 - Unspecified urinary incontinence, R35.1 - Nocturia Medications: New solifenacin (Vesicare) 5 mg PO BEDTIME 30 tabs 2RF Patient Instructions: The patient had an opportunity to ask questions regarding treatment plan. The patient expressed understanding and agreement with the above treatment plan. The patient is aware they should contact our office by phone for worsening of their current condition or the appearance of new symptoms. Compliance is encouraged with any medications and followup testing that is ordered. It is a privilege to be allowed the opportunity to participate in the urologic care of your patient. If you have any questions or concerns regarding treatment for the above conditions please do not hesitate to contact me. The office telephone contact is [phone]. This note is constructed in part using voice recognition software. While every effort has been made to ensure accuracy spouting installer errors may have been included. Yours sincerely, Monalisa Melchor MD Scribe Plan - Not visible on output: Patient was informed and verbally consented to the use of an ambient scribe for clinic note documentation during this visit. Coding Level of Care Code Est Pt Level 4 (03981) Diagnoses Intrinsic sphincter deficiency (ISD) N36.42 Bladder wall thickening N32.89 LEXUS (stress urinary incontinence, female) N39.3 CPT Codes Cystoscopy - CPT: 95607-Bptiahuele ([id number])
--- OUTSIDE RECORDS SUMMARY | 2025-05-28 14:35 | XMS_ITS | Patient Health Record ---
Author Organization [facility] Address [address] [place] [address] Care Team Providers Care Diversional Therapist'S Assistant Name Role Phone Tye Cohen Primary Care Provider Spencer Grubbs Unavailable [phone] Allergies Allergen (clinical drug ingredient) Drug/Non Drug [...] W/U Status Risk Notes Problem Tinea unguium (652944723) Tinea unguium (B35.1) Active confirmed Problem Acquired hammer toe of left foot ([id number]) Hammer toe of left foot (M20.42) Active confirmed Improvemen t, T2 Plan Of Treatment Pending Test Test Name Order Date [id number] NAIL, 6 OR MORE 04/01/2021 23123-HEXHFYT NAIL, 6 OR MORE 06/17/2021 73366-WUBRBIV NAIL, 6 OR MORE 09/20/2021 20524-TSFVVYS NAIL, 6 OR MORE 11/25/2021 19412-EGOMTTM NAIL, 6 OR MORE 02/10/2022 17532-EDUTURW NAIL, 6 OR MORE 03/28/2022 68942-ESFLIMJ NAIL, 6 OR MORE 06/20/2022 65127-DDGRRDB NAIL, 6 OR MORE 09/05/2022 00462-CJSVHIE NAIL, 6 OR MORE 12/05/2022 37279-CHCQEBL NAIL, 6 OR MORE 09/18/2023 19517-Ybsthhed Plate 04/01/2021 47513-OXB 06/20/2021 79055-AOR 02/10/2022 52034-NNN 12/05/2022 24974-FGV 12/29/2022 94266-PMV 05/30/2022 81383- Debride <25 sq cm 01/12/2023 87756- Debride <25 sq cm 09/05/2022 50278- Debride <25 sq cm 03/28/2022 10121-BIQNHAH SKIN/TISSUE 06/20/2022 36635-FLFPVTP SKIN/TISSUE 12/22/2022 13314-XNMGYRG SKIN/TISSUE 02/24/2022 76849-OXYSUVS SKIN/TISSUE 07/05/2021 63778-DMPYMAQ SKIN/TISSUE 12/29/2022 39085-FXOFBVR SKIN/TISSUE 01/12/2023 85861 - Tenotomy, open flexor 12/04/2023 69569 - Tenotomy, open flexor 12/18/2023 Insurance Providers Payer Name Payer Address Payer Phone Subscriber Number Group Number Insured Name Patient Relationship to Insured Coverage Start Date Coverage End Date [facility] [address] [place] [address] [phone] [id number] Jewels Geri Self - patient is [...] History Reason Date(Month/Year) Ultrasound L leg 11/22/21 [facility] Fall on 03/01/22 blood clots mild 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
--- OUTSIDE RECORDS SUMMARY | 2025-05-28 14:35 | XMS_ITS | Clinical Summary ---
Author Organization [facility] Address [address] [place] [address] Care Team Providers Care Bait Painter Name Role Phone Unavailable Primary Care Provider [...] Parker Keenan OTHER SURGICAL HISTORY 02/12/14 PROCEDURE: [place] [facility]SC NJX IMPLT MATRL URT&/BLDR NCK; COMMENT: [...] defers sleep study Dermatophytosis of nail 02/20/2006 DX:Benoit tophytosis of nail; COMMENT: Dr. Herrera, DPM [...] Procedure Name Priority Date/Time Associated Diagnosis Comments [facility] SCREENING DIGITAL Routine 06/23/2024 12:47 PM EDT Encounter for screening mammogram for malignant neoplasm of breast [facility] DEXA AXIAL SKELETON Routine 06/15/2022 9:59 AM EDT Encounter for screening for osteoporosis from Last 3 Months or Most Recently Relevant to Health Maintenance Results * [facility] SCREENING DIGITAL (06/23/2024 12:47 PM EDT) Anatomical Region Laterality Modality Mammography 06/23/2024 9:10 AM EDT Narrative 06/23/2024 12:47 PM EDT [facility] Diagnostic Imaging Department [address] [place] [address] Patient: GERI DONIS Fay Deras/Age/Sex: 1950 - 73 - F Unit#: [id number] Location/Status: SPDIMAM/REG CLI Mnemonic/Ordering Site: DIGSC/SPMAM Ordering Physician: MARY COHEN MD [facility] Screening Digital - 06/23/24 - 933 Report Status:Signed EXAM: [facility] Screening Digital EXAM DATE AND TIME: 06/23/2024 9:35 AM HISTORY: Screening. Left breast biopsy in 2006, pathology benign. COMPARISON: 06/19/23, 06/15/22, 06/13/21 TECHNIQUE: Bilateral digital breast tomosynthesis was performed in the CC and MLO projections. Computer aided detection with Multistat 3D 3.1 was employed. TISSUE DENSITY: b. [...] for Mammography at [facility] [address] [place] [address] Dictating Physician: FELICITY SHEPARD MD Electronically Signed by: FELICITY SHEPARD MD Dic Date/Time: 06/23/24 1247 Sign date/Time: 06/23/24 1247 Procedure Note Felicity Shepard MD - 06/28/2024 [facility] Diagnostic Imaging Department [address] [place] [address] Patient: GERI DONIS.O.B./Age/Sex: 1950 - 73 - F Unit#: [id number] Location/Status: SPDIMAM/REG CLI Mnemonic/Ordering Site: [facility] Ordering Physician: MARY COHEN MD [facility] Screening Digital - 06/23/24 - 34 Report Status:Signed EXAM: [facility] Screening Digital EXAM DATE AND TIME: 06/23/2024 9:35 AM HISTORY: Screening. Left breast biopsy in 2006, pathology benign. COMPARISON: 06/19/23, 06/15/22, 06/13/21 TECHNIQUE: Bilateral digital breast tomosynthesis was performed in the CCand MLO projections. Computer aided detection with Multistat 3D 3.1was employed. TISSUE DENSITY: b. There [...] Mammogram performed at [facility] [place] [address] Dictating Physician: FELICITY SHEPARD MD Electronically Signed by: FELICITY SHEPARD MD Dic Date/Time: 06/23/241246 Sign date/Time: 06/23/241246 Mary Cohen MD IMG BI PROCEDURES Final Result * [facility] DEXA AXIAL SKELETON (06/15/2022 9:59 AM EDT) Anatomical Region Laterality Modality Mammography 06/15/2022 8:58 AM EDT Narrative 06/15/2022 9:59 AM EDT [facility] Diagnostic Imaging Department [address] [place] [address] Patient: GERI DONIS Fay /Age/Sex: 1950 - 71 - F Unit#: [id number] Location/Status: SPDIMA/REG CLI Mnemonic[facility] Ordering Physician: RERE SIMMONS MD [...] probability of hip fracture of 1.2%. Code 66568 Dictating Physician: MILDRED HASSAN MD Electronically Signed by: MILDRED HASSAN MD Dic Date/Time: 06/15/22957 Sign date/Time: 06/15/22958 Procedure Note Mildred Hassan MD - 2022 [facility] Diagnostic Imaging Department [address] [place] [address] Patient: GERI DONIS Fay GuerreroB./Age/Sex: 1950 - 71 - F Unit#: [id number] Location/Status: [facility] Mnemonic[facility] Ordering Physician: RERE SIMMONS MD [...] density of the femurs bilaterally is 0.980 gm/dy1nkctt is 97% of that of young normals [...] probability of hip fracture of 1.2%. Code 62512 Dictating Physician: MILDRED HASSAN MD Electronically Signed by: MILDRED HASSAN MD Dic Date/Time: 06/15/2258 Sign date/Time: 06/15/22958 Rere Simmons MD [facility] [place]EDURES Final Resu lt from Last 3 Months or Most Recently Relevant to Health Maintenance Advance Directives Documents on File Type Date Recorded Patient Police Crime Scene Technician Expl anation Health Care Decision (hx) 03/13/2022 AD COLES DIRECTIVE Health Care Decision (hx) 03/13/2022 AD COLES DIRECTIVE Health Care Decision (hx) 03/13/2022 AD COLES DIRECTIVE Health Care Decision (hx) 03/13/2022 AD COLES DIRECTIVE Health Care Decision (hx) 03/13/2022 AD COLES DIRECTIVE
== END 2025-05-28 14:25 | disposition home or self-care (01) ==
LOC: HO.HUSH 13:09
PROVIDERS: PCP Internal Medicine; Visit Provider Urology
DX: N39.3 Stress incontinence (female) (male) (principal); N32.89 Other specified disorders of bladder; R35.1 Nocturia; N36.42 Intrinsic sphincter deficiency (ISD)
CPT/HCPCS: 52000; 99214

== ENCOUNTER → 2025-05-28 13:09 | Outpatient (BNVA) | payer MEDICARE, SELFPAY | PROVIDERS: PCP Internal Medicine; Visit Provider Urology | DX: N36.42 Intrinsic sphincter deficiency (ISD) (principal); N32.89 Other specified disorders of bladder; N39.3 Stress incontinence (female) (male); R35.1 Nocturia | CPT/HCPCS: 52000; 81003; 99212 ==

== ENCOUNTER 2025-07-28 05:48 | Day surgery (SDC) | payer MEDICARE, SELFPAY ==
--- OUTSIDE RECORDS SUMMARY | 2024-02-01 07:15 | XMS_ITS ---
Author Organization [facility] Address [address] [place] [phone] Care Team Providers Care Lockstitch Lining Maker Name Role Phone Tye Cohen Primary Care Provider Unavailabl Spencer Nguyễn Unavailable [phone] Encounters Encounter Location Date Provider Diagnosis [address] [address] 02/01/2024 Spencer Ordoñez Plan Of Treatment No Information Progress Notes * Luzma DONISineDOB:[birth year] (74 yo F)Acc No.[id number]:02/01/2024 Progress Notes Patient: Geri RAMOS Provider: Jose Ordoñez DPM :1950 A ge:73 Y S ex:Female Date:02/01/2024 Address:[address] [place], [place] [id number] Pcp:Tye Cohen Subjective: * Chief Complaints: * * Medical History: Objective: * Vitals: Assessment: Plan: * Treatment: * Images: * The named appointment provid er may or may not be the originator of this progress note, and it is not deemed complete until electronically signed by the appointment provider. Sign off status: Pending * Provider: Jose Ordoñez DPM Date: 0 02/01/2024 Generated for Lucilai lamonte/Farobin/eTransmitting on: 09/08/2024 03:04 PM EST
--- OUTSIDE RECORDS SUMMARY | 2025-07-09 15:05 | XMS_ITS | Patient Health Record ---
Author Organization [facility] Address [address] [place] [address] Care Team Providers Care Director Of Industrial Relations Name Role Phone Tye Cohen Primary Care Provider Spencer Grubbs Unavailable [phone] Allergies Allergen (clinical drug ingredient) Drug/Non Drug [...] Vaccine Route Administration Date Status Comme nts COVID-19 Pfizer BioNTech Vaccine Unknown 05/24/2021 Administered 1st 11/03/20 2nd 11/24/20 Influenza Unknown 06/13/2022 Administered Social History Tobacco Use: Social History Observation [...] Problem Status W/U Status Risk Notes Problem Information temporarily unavailable Tinea unguium (B35.1) Active confirmed Problem Information temporarily unavailable Hammer toe of left foot (M20.42) Active confirmed Improveme nt, T2 Plan Of Treatment Pending Test Test Name Order Date [id number] NAIL, 6 OR MORE 04/01/2021 24548-RCIVQUJ NAIL, 6 OR MORE 06/17/2021 38320-BYJARCH NAIL, 6 OR MORE 09/20/2021 93679-UKNURWZ NAIL, 6 OR MORE 11/25/2021 37767-HPUQYAE NAIL, 6 OR MORE 02/10/2022 79021-RUGIRFU NAIL, 6 OR MORE 03/28/2022 86603-FNMVEYB NAIL, 6 OR MORE 06/20/2022 79514-ABKKSOR NAIL, 6 OR MORE 09/05/2022 37072-LCSSBZV NAIL, 6 OR MORE 12/05/2022 91274-LYDTQFP NAIL, 6 OR MORE 09/18/2023 02793-Jhvaestm Plate 04/01/2021 87934-PLP 06/20/2021 61713-LFG 02/10/2022 19764-EBK 12/05/2022 05846-NBL 12/29/2022 28891-ASI 05/30/2022 07371- Debride <25 sq cm 01/12/2023 65365- Debride <25 sq cm 09/05/2022 41690- Debride <25 sq cm 03/28/2022 18511-CFGNEJW SKIN/TISSUE 06/20/2022 42728-PQBOSYO SKIN/TISSUE 12/22/2022 23377-OMTWDVE SKIN/TISSUE 02/24/2022 47300-QDKMIUO SKIN/TISSUE 07/05/2021 50688-GKLHVTK SKIN/TISSUE 12/29/2022 42499-TEOTILL SKIN/TISSUE 01/12/2023 26275 - Tenotomy, open flexor 12/04/2023 69164 - Tenotomy, open flexor 12/18/2023 Insurance Providers Payer Name Payer Address Payer Phone Subscriber Number Group Number Insured Name Patient Relationship to Insured Coverage Start Date Coverage End Date [facility] [address] [place] [address] [phone] [id number] Geri Donis Self - patient is [...] History Reason Date(Month/Year) Ultrasound L leg 11/22/21 [facility] Fall on 03/01/22 blood clots mild 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
--- OUTSIDE RECORDS SUMMARY | 2025-07-09 15:05 | XMS_ITS | Data Portability ---
Author Organization [place] [facility],, RERE SIMMONS MD Address [address] [facility] [address] [place] [address] Care Team Providers Care Valet Parker Name Role Phone CLAUDE ZUNIGAYUE Primary Care Provider Assessment No assessment recorded. Plan of Treatment Reminders Order Date Submit Date Provider Last Modified By Organization Details Last Modified Time Details Appointments None recorded. Lab cytology report, thin prep, smear or scraping, cervical or vaginal 2024 025 NORA [facility] (Centralized Electronic Ordering - All Locations), Patient Can Go To The Location Of Their Choice, [id number] 5 12:15:57 culture, urine 2022 023 [facility] (Centralized Electronic Ordering - All Locations), Patient Can Go To The Location Of Their Choice, [id number] 3 09:38:09 pap test, thinprep, cervical 2022 023 [facility] (Centralized Electronic Ordering - All Locations), Patient Can Go To The Location Of Their Choice, [address] 3 07:47:51 pap test, thinprep, cervical 2021 022 [email or web address], Cytopathology Service, [address] [place], [address], 2 07:43:52 Referral None recorded. Procedures None recorded. Surgeries None recorded. Imaging MAMMO, screening , digital, bilateral - Breast Aspiratio n and/or Biopsy if needed 2024 025 [facility], [address] [facility], [place], [address], 5 09:03:38 bone density 2024 025 [facility], [address], [address], [place], [address], 5 14:51:11 MAMMO, screening , digital, bilateral - Breast Aspiratio n and/or Biopsy if needed 2022 023 [facility], [address], [address], [place], [address], 5 07:18:26 bone density 2022 023 [facility], [address], [address], [place], [address], 5 07:32:11 MAMMO, screening , digital, bilateral 2021 022 [facility] (Mammography), [address], [place], [address], 2 14:14:36 bone density 2021 022 [facility], [address], [address], [place], [address], 2 10:08:37 Medication Orders estradiol 0.01% (0.1 mg/gram) vaginal cream 2024 025 [facility]/Pharmacy #[id number], [address] [place], [address], 5 09:42:56 estradiol 0.01% (0.1 mg/gram) vaginal cream 2021 022 [facility]/Pharmacy #[id number], [address] [place], [address], 3 09:55:53 Patient TargetsNo targets recorded. Patient Instructions Encounter Date Encounter Id Patient Instructions Last Modified By Organization Details Last Modified Time 06/14/2020 [id number] osteoporosis education Not available 06/14/2020 09:23:04 calcium requirem ent education Not available 06/14/2020 09:23:04 This visit is a phone telehealth visit. The patient consented to the visit by phone. The patient was at home at the time of the call and the provider and patient were the only people on the line. I was at [address] [facility], [address], [place], [place], at the time of the call. [...] 30 minutes. Not available 06/14/2020 09:24:05 05/05/2022 [id number] atrophic vaginit is: care instructions Not available [...] cream daily. Not available 05/05/2022 09:39:45 06/19/2022 [id number] The patient was agreeable to this plan. [...] 30 minutes. Not available 06/19/2022 12:43:28 05/08/2023 [id number] urinary tract infection in women information Not [...] the breast. Not available 05/08/2023 10:38:31 05/26/2025 [id number] atrophic vaginit is: care instructions Not available [...] Detail LastModifiedTime 05/05/20 22 05/05/2022 PAP1C ASE [id number] ThinP rep Pap, Image d: NEGAT EZEQUIEL FOR SQUAM OUS INTRA EPITH ELIAL LESIO N AND MALVIKI LAWLER . Atrop hy. Rosette Cullen , CT( CP) (Case elect enrico nichole carla d 05 13 2022) ADEQU ACY: Satis facto ry . SOURC E: ThinP rep Pap HPV IF Ascus : Refle x 16 and 18, Cervi shai, Image d CLINI SHAI INFOR MATIO N: HPV If Diagn osis of ASCUS . Menop ause, [Z12. 4] Not Available [facility], Cytopathology Service [address] [place], [address], 05/15/2022 08:16:10 05/08/20 23 05/08/2023 [facility] CYTOL OGY results Patie nt Name: RANDOLPH GIRON nt : [birth year] (Age: 72) Lab Acces murali #: [id number] Colle ction Date: 2022 Acces murali Date: 2022 Sign Out Date: 2022 Tissu e Sourc e: 1: THINP REP PROSPECT MANAGER PAP TEST, CERVI SHAI: Final Diagn osis: [...] Syste m with lian gaines or ashli schneider Perfo rmed at [facility] ate Refer ence Labor atory depar tment of Cytol ogy, [address] [place] Clini shai Histo ry (othe r): z12.4 , lps 05-05 neg Phone #: [phone], On-Ca ll Patho logis t: [id number] Not Available [facility] (Centralized Electronic Ordering - All Locations) Patient Can Go To The Location Of Their Choice, [address] 05/16/2023 16:51:37 05/26/20 25 05/28/2025 IGP, RFX APTIM A HPV ASCU diagnosis: Hosea NIEVES FOR INTRA EPITH ELIAL LESIO N OR MALIG NURIS . Not Available [facility] ([facility]) [address] [place], [address], 05/28/2025 12:15:57 05/26/20 25 05/28/2025 IGP, RFX APTIM A HPV ASCU specimen adequacy: Hosea kirk Satis dena irving for evalu ation . Not Available [facility] ([facility]) [address] [place], [address], 05/28/2025 12:15:57 05/26/2005/28/2025 IGP, RFX APTIM A HPV ASCU clinician provided ICD10: Hosea kirk Z12.4 Not Available [facility] ([facility]) [address] [place], [address], 05/28/2025 12:15:57 05/26/20 25 05/28/2025 IGP, RFX APTIM A HPV ASCU performed by: Hosea Newman Prior , Cytol ogist (ASCP ) Not Available [facility] ([facility]) [address] [place], [address], 05/28/2025 12:15:57 05/26/20 25 05/28/2025 IGP, RFX APTIM A HPV ASCU . . Not Available [facility] ([facility]) [address] [place], [address], 05/28/2025 12:15:57 05/26/20 25 05/28/2025 IGP, RFX APTIM A HPV ASCU note: Hosea kirk The Pap smear is a scree estela test desig grey to aid in the detec tion of saeed ligna nt and malig nant condi tions of the uteri ne cervi x. It is not a diagn ostic proce dure and shoul d not be used as the sole means of detec ting cervi shai cance r. Both false -posi tive and false -nega tive repor ts do occur . Not Available [facility] ([facility]) [address] [facility], [place], [address], 05/28/2025 12:15:57 05/26/20 25 05/28/2025 IGP, RFX APTIM A HPV ASCU test methodology: Commen t This liqui d based ThinP rep(R ) pap test was edwar grey with the use of an image guide d syste m. Not Available [facility] ([facility]) [address] [facility], [place], [address], 05/28/2025 12:15:57 05/26/2005/28/2025 IGP, RFX APTIM A HPV ASCU . Commen t The HPV DNA refle x crite carlo were not met with this speci men resul t there fore, no HPV testi ng was perfo rmed. Not Available [facility] ([facility]) [address] [facility], [place], [address], 05/28/2025 12:15:57 06/09/20 20 06/09/2020 bone densi ty No observ ation record ed. [address] Diagn[facility] Imaging Dept [address] [place], [address], 06/14/2020 08:24:36 06/09/20 20 06/09/2020 MAMMO , scree estela, digit al, bilat eral No observ ation record ed. [address] [facility] [address] [place], [address], 06/11/2020 11:47:29 06/15/20 20 06/09/2020 bone densi ty No observ ation record ed. [facility] [address] [facility] [address], [place], [address], 06/15/2020 08:12:33 06/15/20 22 06/15/2022 bone densi ty No observ ation record ed. [email or web address] Diagnosit Imaging Dept [address] [place], [address], 06/15/2022 13:51:39 06/15/2006/15/2022 MAMMO , scree estela, digit al, bilat eral No observ ation record ed. [email or web address] Diagnosit Imaging Dept [address] [place], [address], 06/15/2022 14:40:41 06/19/2006/15/2022 bone densi ty No observ ation record ed. [facility] Radiology [address] [facility] [address], [place], [address], 06/20/2022 08:04:14 06/24/2006/24/2025 MAMMO , scree estela, digit al, bilat eral No observ ation record ed. [email or web address] (Ultrasound) [address] [facility], [place], [address], 06/24/2025 09:18:11 Result Notes None recorded. Problems Name Problem SNOMED Code Status Onset Date Resolution Date Notes Provider Name and Address Organization Details Recorded Time Hypertensi ve disorder 04296871 Active Rere Simmons MD [address], [place], [address], [place] [facility], 08:50:51 Depressive disorder 11043140 Active Rere Simmons MD [address], [place], [address], [place] [facility], 08:50:51 Arthritis 1636513 Active Rere Simmons MD [address], [place], [address], [place] [facility], 5 08:50:51 Urinary incontinen ce 421973754 Active She has some urinary incontinen ce, she sees Dr. Prieto, and is tkaing medication for this. She tried E2 vaginal cream but only for 2 weeks and did not notice an improvemen t, declines care home use Rere Simmons MD [address], [place], [address], [place] [facility], 6 08:27:24 Menopausal syndrome 809894682 Active 2015 Rere Simmons MD [address], [place], [address], [place] [facility], 6 08:26:56 Candidiasi s of skin 43608313 Active 2017 Rere Simmons MD [address], [place], [address], [place] [facility], 8 11:36:20 Osteopenia 254609677 Active 2019 Rere Simmons MD [address], [place], [address], [place] [facility], 0 09:22:34 Atrial fibrillati on 96871416 Active 2021 Heather najera, [place] - [facility], 2 08:55:33 Atrophic vaginitis 52774568 Active 2021 Rere Simmons MD [address], [place], [address], [place] [facility], 2 09:40:02 Problem Notes None recorded. Procedures Surgical History Date Name Laterality Status Provider Name and Address Organization Details Recorded Time 06/15/20 24 Most Recent Mammogram completed Savanna Dai [place] - [facility], 05/26/2025 09:22:39 09/17/19 22 insertion of single incision mid-urethral mini-sling completed Rere Simmons MD [address], [place], [address], [place] [facility], 05/05/2022 09:38:10 12/06/19 17 Other completed Savanna Baltazar [facility], 04/25/2017 08:11:16 04/25/20 16 Most Recent Bone Density completed Savanna Baltazar [facility], 04/23/2017 11:01:40 08/27/18 99 Other completed Savanna Baltazar [facility], 02/19/2013 11:15:16 08/27/18 97 Hysterectomy completed Rere Simmons MD [address] [facility],[address], [place], [address], [place] - [facility], 02/19/2013 21:15:25 Imaging Results None recorded. [...] Available estradiol 0.01% (0.1 mg/gram) vaginal cream INSERT 0.5 G EVERY DAY BY VAGINAL ROUTE FOR 85 DAYS. active Not Available Not Available No t Available methylpredn isolone 4 mg tablets in a [...] Not Available Not Available No t Available solifenacin 5 mg tablet TAKE 1 TABLET BY [...] Available Not Available No t Available Afluria 1186-0594(P F) 45 mcg (15 mcg x 3)/0.5 mL intramuscul ar syringe TO BE ADMINISTE RED BY PHARMACIS T FOR IMMUNIZAT ION active Not Available Not Available No t Available Fluzone High-Dose 5262-6404 (PF) 180 mcg/0.5 mL intramuscul ar syringe [...] Address Organization Details Last Updated DateTime 05/05/2022 670516.2 1 g 36.8 kg/m2 170.18 cm 83 /min 135/78 mm[Hg] Heather [facility], 05/05/2022 08:49:44 Date Recorded Body height Body temperature Body mass index (BMI) Body weight Heart rate Systolic And Diastolic Provider Name and Address Organization Details Last Updated DateTime 3 170.18 cm 97.2 [degF] 35.4 kg/m2 381221. 59 g 82 /min 121/61 mm[Hg] Savanna Balta[facility], 3 09:54:53 Date Recorded Body weight Body mass index (BMI) Body height Body temperature Heart rate Systolic And Diastolic Provider Name and Address Organization Details Last Updated DateTime 5 984758. 39 g 37.1 kg/m2 170.18 cm 97.4 [degF] 79 /min 127/60 mm[Hg] Savanna Baltazar [facility], 5 09:20:34 Date Recorded Body height Provider Name an d Address Organization Details Last Updated DateTime 06/19/2022 170.18 cm Heather Lopez [facility], 06/19/2022 10:20:26 Social History Question Answer Notes LastModified by Organizat ion Details LastModified Time Tobacco Smoking Status Never Smoker Not Available [facility] 06/29/2020 03:19:39 What Is Your Level Of Caffeine Consumption? None [id number] Information not available 06/29/2020 In The 14 [...] Type Of Diet Are You Following? REGULAR [id number] Information n ot available 06/29/2020 Which Illicit Or Recreational Drugs Have You Used? No [id number] Information not available 06/29/2020 Do You Reside In Or Have You Traveled To An Area Where Ebola Virus Transmission Is Active? No [id number] Information not available 06/29/2020 Education 2 Year [...] available 05/05/2022 Are You Sexually Active? No [id number] Information not available 06/29/2020 How Much Tobacco Do You Smoke? No [id number] Information not available 06/29/2020 General Stress Level [...] is your level of alcohol consumption? None [id number] Information not available 06/29/2020 Do you or have you ever used smokeless tobacco? Never used smokeless tobacco [id number] Information not available 06/29/2020 Are you currently employed? No Information not available 05/05/2022 What is your occupation? retired Information not available 04/24/2016 Do you or have you ever used e-cigarettes or vape? Never used electronic cigarettes [id number] Information not available 06/29/2020 What is your exercise level? None knee issue Information not available 05/08/2023 Mental Status Question Answer Note LastModified by Organization D etails LastModified Time Do you feel stressed (tense, restless, nervous, or anxious, or unable to sleep at night)? [id number] Information not available 05/26/2025 Family History Relationship [...] for MyRisk panel N Autoimmune Condition N Lung Disease N Depression Y Defects or Inherited Disease N History of Ovarian Cancer N BRCA testing in past N Anxiety Disorder Y Arthritis Y Infertility N History of Cancer N Endometriosis N Thyroid Problems N Kidney or Bladder Problems Y GI Problems Y Anemia N History of [...] Influenza, split virus, quadrivalent, preservative 5 completed Savanna Meczywor null, [place] - [facility], 04/24/2016 08:11:07 Influenza, split virus, quadrivalent, preservative 0 completed Heather Davis null, [place] [facility], 05/04/2020 09:42:32 zoster recombinant 0 completed Savanna Meczywor [place] [facility], 05/08/2023 09:48:31 Influenza, adjuvanted, trivalent, PF 8 completed Savanna Meczywor [place], [place] [facility], 05/08/2023 09:48:31 zoster recombinant 0 completed Savanna Meczywor [place] [facility], 05/08/2023 09:48:31 Influenza, adjuvanted, quadrivalent, PF 1 completed Savanna Meczywor [place] [facility], 05/08/2023 09:48:31 COVID-19, mRNA, LNP-S, PF, 30 mcg/0.3 mL dose 1 completed Savanna Meczywor [place], [place] [facility], 05/08/2023 09:48:31 COVID-19, mRNA, LNP-S, PF, 30 mcg/0.3 mL dose 1 completed Savanna Meczywor null, [place] [facility], 05/08/2023 09:48:31 COVID-19, mRNA, LNP-S, PF, [...] Savanna Meczywor null, [place] [facility], 05/08/2023 09:48:32 Influenza, split virus, trivalent, preservative 2 completed Savanna Meczywor null, [place] [facility], 05/08/2023 09:48:32 Influenza, split virus, trivalent, preservative 7 completed Savanna Meczywor [place] [facility], 05/08/2023 09:48:32 Influenza, split virus, trivalent, preservative 6 completed Savanna Meczywor null, [place] [facility], 05/08/2023 09:48:32 Influenza, split virus, trivalent, preservative 5 completed Savanna Meczywor [place], [place] [facility], 05/08/2023 09:48:32 Novel [id number], preservative-free 9 completed Savanna Meczywor [place], [place] [facility], 05/08/2023 09:48:32 Td (adult), 2 Lf tetanus toxoid, preservative free, adsorbed 9 completed Savanna Meczywor [place], [place] [facility], 05/08/2023 09:48:32 Influenza, adjuvanted, quadrivalent, PF 2 completed Savanna Meczywor [place], [place] [facility], 05/08/2023 09:53:45 Pneumococcal conjugate PCV20, polysaccharide [id number] conjugate, adjuvant, PF 4 completed Not Available [facility] 05/26/2025 09:17:00 pneumococcal polysaccharide PPV23 3 completed Not Available [facility] 05/26/2025 09:17:00 Influenza, adjuvanted, quadrivalent, PF 3 completed Not Available [facility] 05/26/2025 09:17:00 Influenza, high-dose, trivalent, PF 5 completed Not Available [facility] 05/26/2025 09:17:00 Past Encounters Encounter ID Performer Location Encounter Start Date Encounter Closed Date Diagnosis/Indication Diagnosis SNOMED-CT Code Diagnosis ICD10 Code Diagnosis IMO Codes Diagnosis Note [id number] MD RERE Hong MD [address] [place], [place] [address] [place] [address] 02/19/2013 10:49:45 02/20/2013 11:00:02 [id number] MD RERE Hong MD [address] [place] [address] [place] [address] 03/17/2014 07:45:33 03/17/2014 09:06:51 Specialized medical examination 65776052 Screening for malignant neoplasm of rectum 842935892 Screening mammography 50322711 [id number] MD RERE Hong MD [address] [place] [address] [place] [address] 03/22/2015 08:32:18 03/22/2015 09:47:11 Specialized medical examination 60719827 Screening for malignant neoplasm of rectum 860638882 Screening mammography 39716932 [id number] MD RERE Hong MD [address] [place] [address],[facility] [place] [address] 04/24/2016 08:04:13 04/24/2016 10:10:46 Screening for malignant neoplasm of cervix 092829237 Z12.4 Screening mammography 24 257825 Z12.31 Menopausal syndrome 1237 97684 N95.9 [id number] MD RERE Hong MD [address] [place], [place] [address]Jose [facility] [place] [address] 04/25/2017 08:02:16 04/25/2017 10:22:36 Screening for malignant neoplasm of cervix 210549841 Z12.4 Screening mammography 24 192012 Z12.31 Cares for self 129298902 Z76.89 [id number] MD RERE Hong MD [address] [place], [place] [address] [address] 04/26/2018 09:18:18 04/26/2018 14:14:03 Screening for malignant neoplasm of cervix 459569549 Z12.4 Screening mammography 24 262714 Z12.31 Candidiasis of skin 4988 3006 B37.2 [id number] MD RERE Hong MD [address] [place] [address] Rit[place] [address] 04/30/2019 10:03:27 04/30/2019 11:36:42 Screening for malignant neoplasm of cervix 955263881 Z12.4 Screening mammography 24 456587 Z12.31 [id number] MD RERE Hong MD [address] [place] [address] [place] [address] 05/01/2019 14:28:00 05/01/2019 15:51:40 Dysuria 56494076 R30.0 [id number] MD RERE Hong MD [address] [place] [address] [place] [address] 05/04/2020 09:33:47 05/04/2020 11:14:34 Screening for malignant neoplasm of cervix 473362115 Z12.4 Screening mammography 24 530659 Z12.31 Screening for osteoporosis 610911467 Z13.820 [id number] MD RERE Hong MD [address] [place] [address] [place] [address] 06/14/2020 09:01:07 06/14/2020 13:56:38 Osteopenia 899492174 M85.852 [id number] MD RERE Hong MD [address] [place] [address] [place] [address] 05/05/2022 08:39:48 05/05/2022 09:55:16 Screening for malignant neoplasm of cervix 309362892 Z12.4 Screening mammography 24 919086 Z12.31 Screening for osteoporosis 112663171 N95.8 Atrophic vaginitis 70073 000 N95.2 Atrial fibrillation 4943 6004 I48.91 [id number] MD RERE Hong MD [address] [place] [address] [place] [address] 06/19/2022 10:17:59 06/19/2022 14:44:12 Osteopenia 844895480 M85.852 Menopausal syndrome 1237 65425 N95.9 [id number] MD RERE Hong MD [address] [facility] [place] [address] 05/08/2023 09:44:51 05/08/2023 11:40:13 Screening for malignant neoplasm of cervix 712075075 Z12.4 Screening mammography 24 030571 Z12.31 Screening for osteoporosis 359097323 N95.8 Dysuria 87800753 R30.0 [id number] MD RERE Hong MD [address] [facility] [place] [address] 05/26/2025 09:15:05 05/26/2025 14:51:10 Screening for malignant neoplasm of cervix 590832358 Z12.4 Screening mammography 24 515612 Z12.31 Screening for osteoporosis 781392093 N95.8 Atrophic vaginitis 59534 000 N95.2 Health Concerns Section Related Observation LastModified by Organization Detai ls LastModified Time None Recorded Concern Status LastModified by Organization Details LastModified Time None Recorded Advance Directives Directive None Recorded Payers Insurance Date Sequence Insurance Name Policy Number Policy Machuca Covered Member ID Machuca Member ID Guarantor Name 05/26/2025 1 [facility] - MEDICARE ADVANTAGE PLAN (MEDICARE REPLACEMENT HMO) [id number] Geri Donis [id number] Geri Donis 05/26/2025 1 [facility] [id number] Geri Donis [id number] Geri Donis 05/26/2025 1 [facility]: MEDICARE HMO BLUE (MEDICARE REPLACEMENT HMO) [id number] Geri Donis [id number] Geri Donis Notes Date Note Type Note Provider Name and Address Organization Details Recorded Time 06/14/2020 text/html This visit is a phone telehealth visit. The patient consented to the visit by phone. The patient was at home at the time of the call and the provider and patient were the only people on the line. I was at [address] [facility], [address], [place], [place], at the time of the call. [...] of milk. milk. Rere Simmons MD [address] [facility],[address], [place], [address], [place] [facility], 06/14/2020 10:40:58 05/05/2022 text/html She is [...] at this time. Rere Simmons MD [address] [facility],[address], [place], [address], [place] [facility], 05/05/2022 09:41:59 06/19/2022 text/html The patient [...] vitamin d supplement. Rere Simmons MD [address] [facility],[address], [place], [address], [place] [facility], 06/19/2022 12:43:48 05/08/2023 text/html She is [...] surgery is planned. Rere Simmons MD [address], [place], [address], [employer] [facility], 05/08/2023 10:38:52 05/26/2025 text/html She is [...] urine specimen today. Rere Simmons MD [address], [place], [address], [place] [facility], 05/26/2025 09:45:53 OBGyn Episode No OBEpisode recorded.
--- OUTSIDE RECORDS SUMMARY | 2025-07-09 15:05 | XMS_ITS | Clinical Summary ---
Author Organization [facility] Address [address] [place] [address] Phone Care Team Providers Care Fitting Room Checker Name Role Phone Tye Cohen MD Primary Care Provider [phone] Encounters Date Type Department Care Team Description 06/24/2025 8:00 AM EDT - 06/24/2025 11:59 PM EDT Hospital [facility] [address] [address] Encounter for screening mammogram for malignant neoplasm of breast Discharge Disposition: Home or Self Care from Last 3 Months Surgical History Surgery Date Site/Laterality Comments BLADDER [...] Parker Keenan OTHER SURGICAL HISTORY 02/12/14 PROCEDURE: CA NDSC NJX IMPLT MATRL URT&/BLDR NCK; COMMENT: [...] defers sleep study Dermatophytosis of nail 02/20/2006 DX:[place] tophytosis of nail; COMMENT: Dr. Herrera, DPM [...] = 0.6 oz pur e alcohol) Comments No Sex and Gender Information Value Date Recorded Sex Assigned at Not on file Legal Sex Female 9:56 AM EST Gender Identity Not on file Sexual Orientation Not on file Obstetrics History Para Term AB IAB SAB Ectopic Multiple Livin g Live Births 3 Last Filed Vital Signs Vital Sign Reading Time Taken Comments Blood Pressure - - Pulse - - Temperature - - Respiratory Rate - - Oxygen Saturation - - Inhaled Oxygen Concentration - - Weight 109 kg (240 lb) 06/24/2025 8:07 AM EDT Height 170.2 cm (5' 7 ) 06/24/2025 8:07 AM EDT Body Mass Index 37.59 06/24/2025 8:07 AM EDT Plan of Treatment Health Maintenance Due Date Last Done Comments Cholesterol Screening (Lipid Panel) 07/30/2022 Falls Risk Assessment 07/30/2022 Hepatitis C Screening 07/30/2022 Medicare Annual Wellness Visit 07/30/2022 Social Influencers of Health Screening 07/30/2022 Hypertension/CHF/CAD Annual BMP Blood Test 08/12/2022 Depression Screening 08/27/2024 COVID-19 Vaccine ( season) 2025 12/08/2021, 05/24/2021, 11/24/2020, Additional history exists RSV Immunization Adult Patients (1 - 1-dose 75+ series) 2025 Colorectal Cancer Screening: FIT-DNA (Cologuard) 05/08/2027 05/08/2024, 05/08/2024 Breast Cancer Screening 06/24/2027 06/24/20 25, 06/23/2024, 06/19/2023, Additional history exists DTaP,Tdap,and Td Vaccines (5 - Td or Tdap) 09/23/2028 09/23/2018, 08/27/2011, 05/21/2008, Additional history exists Osteoporosis Screening (Bone Density Screening) 06/15/2037 06/15/2022, 06/09/2020 Zoster Vaccines Completed 06/28/2020, 03/27, 03/29/2012, Additional history exists Pneumococcal Vaccine: 50+ Years Completed 12/31/2023, 05/10/2023, 06/09/2019, Additional history exists Influenza Vaccine Completed 05/01/2025, , 06/15/2022, Additional history exists HIB Vaccines Aged Out [...] Procedure Name Priority Date/Time Associated Diagnosis Comments MG MAMMO DIGITAL SCREENING W LUI BILAT Routine 06/24/2025 8:12 AM EDT Encounter for screening mammogram for malignant neoplasm of breast [facility] DEXA AXIAL SKELETON Routine 06/15/2022 9:59 AM EDT Encounter for screening for osteoporosis from Last 3 Months or Most Recently Relevant to Health Maintenance Results * MG Mammo Digital Screening w Lui bilat (06/24/2025 8:12 AM EDT) Anatomical Region Laterality Modality Breast Bilateral Mammography 06/24/2025 8:26 AM EDT Impressions 06/24/2025 8:54 AM EDT Benign. BI-RADS CATEGORY: 2 - BENIGN RECOMMENDATION: Screening bilateral mammogram is recommended in 1 year. Mammo Location: [facility] , [address] [place] [address], [id number], . -------- FINAL REPORT -------- Dictated By: Kevon Mendez Dictated Date: 06/24/2025 08:26 ET Assigned Physician: Kevon Mendez Reviewed and Electronically Signed By: Kevon Mendez Signed Date: 06/24/2025 08:54 ET Workstation ID: [id number] Transcribed By: Self Edit Transcribed Date: 06/24/2025 08:26 ET Narrative 06/24/2025 8:54 AM EDT CLINICAL: 74 years old, Female, routine annual exam. COMPARISON: 06/15/2024 and 06/19/2023. TECHNIQUE: Bilateral MLO and CC views were obtained digitally with 3-D mammogram (digital breast tomosynthesis). Computer-aided detection was utilized in evaluation of this exam (CAD). FINDINGS: There is a stable small benign-appearing circumscribed mass at the 6 o'clock position of the left breast. This could represent a skin lesion. No suspicious mass or architectural distortion. No suspicious calcification. There has been no significant change from prior exam(s). BREAST DENSITY: B - There are scattered areas of fibroglandular density. Procedure Note Kevon Mendez MD - 06/24/2025 CLINICAL: 74 years old, Female, routine annual exam. COMPARISON: 06/15/2024 and 06/19/2023. TECHNIQUE: Bilateral MLO and CC views were obtained digitally with 3-Dmammogram (digital breast tomosynthesis). Computer-aided detection wasutilized in evaluation of this exam (CAD). FINDINGS: There is a stable small benign-appearing circumscribed mass atthe 6 o'clock position of the left breast. This could represent a skinlesion. No suspicious mass or architectural distortion. No suspiciouscalcification. There has been no significant change from prior exam(s). BREAST DENSITY: B - There are scattered areas of fibroglandular density. IMPRESSION: Benign. BI-RADS CATEGORY: 2 - BENIGN RECOMMENDATION: Screening bilateral mammogram is recommended in 1 year. Mammo Location: [facility] , [address] [place] [address], [id number], . -------- FINAL REPORT -------- Dictated By: Kevon Mendez Dictated Date: 06/24/2025 08:26 ET Assigned Physician: Kevon Mendez Reviewed and Electronically Signed By: Kevon Mendez Signed Date: 06/24/2025 08:54 ET Workstation ID: [id number] Transcribed By: Self Edit Transcribed Date: 06/24/2025 08:26 ET us Rere Hamilton MD IMG BI PROCEDURES Final Resu lt * [facility] DEXA AXIAL SKELETON (06/15/2022 9:59 AM EDT) Anatomical Region Laterality Modality Mammography 06/15/2022 8:58 AM EDT Narrative 06/15/2022 9:59 AM EDT [facility] Diagnostic Imaging Department [address] [place] [id number] Patient: GERI DONIS Fay Stokes/Age/Sex: 1950 - 71 - F Unit#: [id number] Location/Status: [facility]/REG CLI [facility]em[facility] Ordering Physician: RERE HAMILTON MD [facility] Dexa Axial Skeleton - 06/15/22 [...] probability of hip fracture of 1.2%. Code 70078 Dictating Physician: MILDRED TRACEY MD Electronically Signed by: MILDRED TRACEY MD Dic Date/Time: 06/15/22 0958 Sign date/Time: 06/15/2259 Procedure Note Mildred Tracey MD - 2022 [facility] Diagnostic Imaging Department [address] [place] [phone] Patient: GERI DONIS /Age/Sex: 1950 - 71 - F Unit#: [id number] Location/Status: [facility]/REG CLI [facility] Ordering Physician: RERE HAMILTON MD [facility] Dexa Axial Skeleton - 06/15/22 [...] density of the femurs bilaterally is 0.980 gm/[id number] is 97% of that of young normals [...] probability of hip fracture of 1.2%. Code 23426 Dictating Physician: MILDRED TRACEY MD Electronically Signed by: MILDRED TRACEY MD Dic Date/Time: 06/15/22957 Sign date/Time: 06/15/22958 Rere Hamilton MD IMG BI PROCEDURES Final Resu lt from Last 3 Months or Most Recently Relevant to Health Maintenance Insurance [employer] - [place] MEDICARE ADVANTAGE Advance Directives Documents on File Type Date Recorded Patient Campaign Consultant Expl anation Health Care Decision (hx) 03/13/2022 AD COLES DIRECTIVE Health Care Decision (hx) 03/13/2022 AD COLES DIRECTIVE Health Care Decision (hx) 03/13/2022 AD COLES DIRECTIVE Health Care Decision (hx) 03/13/2022 AD COLES DIRECTIVE Health Care Decision (hx) 03/13/2022 AD COLES DIRECTIVE Care Teams Fitting Room Checker Relationship Specialty Start Date End Date Tye Cohen MD [address] [place] [address] PCP - General Internal Medicine 06/24/25
[2025-07-22 08:39] VITALS: BMI 37.8
--- NOTE | 2025-07-22 10:06 | HO.ANESPROP2 ---
Documented by User: Radha Awan NP 07/22/25 12:00 HPI - Anesthesia Eval Consult details Narrative: 74 yr old female for Cystoscopy with Bulkamid Atrial fibrillation: on eliquis & ASA, follows with [facility] cards, last visit 05/08/25, denies any CP, SOB, dizziness, palpitations. Chronic ankle edema L>R. Considering sleep study. H/O Thromboembolus in 2021: 02/2022 [facility] admission found b/l PE and lg thrombus in left atrium, not requiring surgical evacuation. Patent foramen ovale: note on [facility]IES[facility]KA in 2021. NSTEMI 2021: cardiac CT from 2021 without significant CAD. [facility] Active Problems Active Problems: All Active Problems (Updated 07/22/25 @ 08:42 by Elsie Velazquez RN) LEXUS (stress urinary incontinence, female) (Acute) Bladder wall thickening (Acute) Intrinsic sphincter deficiency (ISD) (Acute) Nocturia (Acute) Urinary incontinence (Acute) Past Medical History Medical History PFO (patent foramen ovale) Urinary incontinence Severe obesity (BMI 35.0-39.9) with comorbidity Osteopenia Osteoarthritis of both shoulders Osteoarthritis of knees, bilateral Numerous skin moles Insomnia, unspecified Hypertension Hyperlipemia Generalized osteoarthritis Depression, major, in remission Classical migraine CKD (chronic kidney disease) stage 3, GFR 30-59 ml/min Atrial fibrillation Surgical History Surgical History Hx of total knee replacement Hx of breast biopsy Hx of cataract extraction History of pubovaginal sling H/O: hysterectomy Social History Social History Patient Tobacco Use Status: Never used Tobacco Have you been hit, kicked, punched, or otherwise hurt by someone within the past year? If so, by whom?: No Are you DNR?: No Advance Directives: No Advance Directives Information Provided: Yes Meds Allergies Allergy/AdvReac Type Severity Reaction Status Date / Time bee pollen (bee stings) Allergy Severe Swelling Verified 05/28/25 13:31 environmental allergies Allergy Mild Rash Verified 05/28/25 13:31 Home Medications ?Medication ?Instructions ?Recorded ?Confirmed ?Last Taken ?Type sumatriptan succinate 25 mg tablet 25 mg PO Q2-4H PRN Migraine 07/22/25 07/22/25 Unknown History Headache enoxaparin 40 mg/0.4 mL 40 mg subcut Q12H 07/28/25 07/28/25 07/28/25 05:00 History subcutaneous syringe (Lovenox) Exam Height,Weight and Vital Signs: Height 5 ft 6.93 in Weight 109.3 kg Narrative Narrative: ECHO 06/2024 The left ventricle is mildly dilated. The LV systolic function is normal The LVEF is 60-65% There are no regional wall motion abnormalities THe right ventricle is poorly visualized however appears dilated with preserved function The left atrium is severely dilated. The right atrium is dilated There is mild apical tethering of the mitral valve leaflets. The mitral valve annulus is dilated. There is mild to moderate mitral regurgitations with an eccentric jet Documented by User: Kris Kauffman MD 07/28/25 07:24 PMFSH Past Medical History Medical History PFO (patent foramen ovale) Urinary incontinence Severe obesity (BMI 35.0-39.9) with comorbidity Osteopenia Osteoarthritis of both shoulders Osteoarthritis of knees, bilateral Numerous skin moles Insomnia, unspecified Hypertension Hyperlipemia Generalized osteoarthritis Depression, major, in remission Classical migraine CKD (chronic kidney disease) stage 3, GFR 30-59 ml/min Atrial fibrillation Family History Family history of problems with anesthesia: No Surgical History Surgical History Hx of total knee replacement Hx of breast biopsy Hx of cataract extraction History of pubovaginal sling H/O: hysterectomy History of Problems with Anesthesia: No Social History Social History Patient Tobacco Use Status: Never used Tobacco Have you been hit, kicked, punched, or otherwise hurt by someone within the past year? If so, by whom?: No Are you DNR?: No Advance Directives: No Advance Directives Information Provided: Yes Meds Allergies Allergy/AdvReac Type Severity Reaction Status Date / Time bee pollen (bee stings) Allergy Severe Swelling Verified 05/28/25 13:31 environmental allergies Allergy Mild Rash Verified 05/28/25 13:31 Home Medications ?Medication ?Instructions ?Recorded ?Confirmed ?Last Taken ?Type sumatriptan succinate 25 mg tablet 25 mg PO Q2-4H PRN Migraine 07/22/25 07/22/25 Unknown History Headache enoxaparin 40 mg/0.4 mL 40 mg subcut Q12H 07/28/25 07/28/25 07/28/25 05:00 History subcutaneous syringe (Lovenox) Exam Exam Date and Time: 07/28/2025 Airway TM Dist: >3cm Neck ROM: Full Denture: Upper and Lower Partial: Lower Loose/Missing/Broken Teeth: No Heart: a fib Lungs: cta Other: normal Assessment and Plan Assessment Anesthesia Assessment: Anesthesia Plan Discussed and Chart Reviewed Final Anesthetic Review Family History of Problems with Anesthesia: No History of Problems with Anesthesia: No NPO: Yes ASA Class: III Final Preanesthetic Review: No Changes in Pt Med Stat, Meds/Allgs Chart Reviewed, Consent Obtained/Reviewed and Anes Risks/Benef Reviewed Patient Risk: Intermediate Procedure Risk: Intermediate Anesthetic Plan Anesthetic Plan: GA Disposition: Standard PACU
[2025-07-28] VITALS (7 sets, daily range): BP systolic 105–152; BP diastolic 56–101; PULSE 63–79; RESP 11–19; TEMP 36.1–36.9; O2SAT 93–98; BMI 37.8
[2025-07-28] MEDS: Lactated Ringers 1,000 ML 100 ML IVCONT (06:32)
--- NOTE | 2025-07-28 06:34 | PC.NURSE ---
anesthesia juan vital and dr henry aware of lovenox dose this am okay to proceed pt aware
--- NOTE | 2025-07-28 07:16 | PC.NURSE ---
patient refusing to take off her dentures anesthesia aware and went of risk okay to proceed
--- NOTE | 2025-07-28 07:34 | MHC.SHP ---
Pre-Procedural Eval Section A - 24 Hr Update-Section A only Date of Service: 07/28/25 The patient is an INPATIENT: No The patient has been examined within 24 hours of the surgical procedure. The History & Physical has been completed within 30 days and I have reviewed it.: Yes Section B - Complete if H&P > 30 days Chief Complaint: Stress incontinence (female) (male) Allergies: Allergies Allergy/AdvReac Type Severity Reaction Status Date / Time bee pollen (bee stings) Allergy Severe Swelling Verified 05/28/25 13:31 environmental allergies Allergy Mild Rash Verified 05/28/25 13:31 Plan Diagnosis/Plan: Unchanged I have reviewed the history and physical and performed a pertinent physical examination on my patient. No changes have occurred unless specified. Cystoscopy, urethral bulking, bulkamid. I have discussed the risks of bulking injection to the proximal urethra to include but not limited to urine retention requiring a garcia catheter, need to repeat the procedure, hematuria, and urgency. Time Spent With Patient Time: Total time managing care of this patient today ____ minutes.
--- NOTE | 2025-07-28 07:34 | W.PM.OPN ---
Operative Note Operative Note Date of Service: 07/28/25 Narrative: Preop diagnosis: Stress Urinary Incontinence. Intrinsic sphincter deficiency Postop diagnosis: Stress Urinary Incontinence. Intrinsic sphincter deficiency Procedure: Cystoscopy urethral bulking with bulkamid system at the proximal urethra Surgeon: Dr. Monalisa Melchor Details of procedure: The patient was brought into the operating room placed on the OR table in supine position anesthesia was administered. Antibiotics confirmed. The patient was placed in lithotomy position prepped and draped in the usual sterile fashion. Safety time-out was done. A 12 Armenian straight catheter was inserted into the bladder and urine was sent for culture. 2% lidocaine jelly was inserted transurethrally 10 mL. The 22 fr/ 11 cm cystoscope, with 0 degree lens with the light cord in the 6 o'clock position, was passed transurethrally, the bladder was filled with sterile water to 100 mL the bladder was visualized. With the sheath at the 5 o'clock position the needle was inserted to the 1 cm tyrell and 0.5 mL of gel was injected there was good bulking noted. This was repeated on the 7 o'clock position. The 2nd needle was inserted into the sheath and an injection was done at the 2 o'clock position and again at the 11 o'clock position. There was bulking of the mucosa noted with good coaptation. A 12 fr catheter was used to drain 100 mL of fluid from bladder. The patient tolerated the procedure and was taken to recovery in stable condition. Complication: none EBL: minimal (<5 mL) Drains: none
== END 2025-07-28 09:34 | disposition home or self-care (01) ==
PROVIDERS: PCP Internal Medicine; Visit Provider Urology
PROC: 0TJB8ZZ Inspection of Bladder, Via Natural or Artificial Opening Endoscopic (ICD-10-PCS; CPT 52000; principal; 2025-07-28 07:30)
DX: N39.3 Stress incontinence (female) (male) (principal); N36.42 Intrinsic sphincter deficiency (ISD); N32.89 Other specified disorders of bladder; R35.1 Nocturia; E66.01 Morbid (severe) obesity due to excess calories; I12.9 Hypertensive chronic kidney disease with stage 1 through stage 4 chronic kidney disease, or unspecified chronic kidney disease; N18.30 Chronic kidney disease, stage 3 unspecified; E78.5 Hyperlipidemia, unspecified; I48.91 Unspecified atrial fibrillation; M17.0 Bilateral primary osteoarthritis of knee; M19.012 Primary osteoarthritis, left shoulder; M19.011 Primary osteoarthritis, right shoulder; M85.80 Other specified disorders of bone density and structure, unspecified site; F32.5 Major depressive disorder, single episode, in full remission; Z79.01 Long term (current) use of anticoagulants; Z79.899 Other long term (current) drug therapy; Z90.710 Acquired absence of both cervix and uterus; Z98.890 Other specified postprocedural states
CPT/HCPCS: 51715; 87086; J0131; J0690; J1171; J2003; J2704; J3010; L8606

== ENCOUNTER → 2025-07-28 05:48 | Outpatient (BNV) | payer MEDICARE, SELFPAY | PROVIDERS: PCP Internal Medicine; Visit Provider Urology | DX: N36.42 Intrinsic sphincter deficiency (ISD) (principal); N39.3 Stress incontinence (female) (male) | CPT/HCPCS: 51715 ==

== ENCOUNTER → 2025-07-30 12:43 | Outpatient (BNVA) | payer MEDICARE, SELFPAY | PROVIDERS: PCP Internal Medicine; Visit Provider Urology | DX: N36.42 Intrinsic sphincter deficiency (ISD) (principal); N39.3 Stress incontinence (female) (male) | CPT/HCPCS: 51798 ==